=== PATIENT | male | born 1960 | race Caucasian/White ===

== ENCOUNTER → 2020-06-14 08:16 | Outpatient (BNVA) | payer MEDICARE, MEDICAID, SELFPAY | PROVIDERS: PCP Internal Medicine; Referring Provider Internal Medicine; Visit Provider Physician Assistant | DX: K21.9 Gastro-esophageal reflux disease without esophagitis (principal); F10.10 Alcohol abuse, uncomplicated; Z79.899 Other long term (current) drug therapy | CPT/HCPCS: Q3014 ==

== ENCOUNTER 2020-08-06 11:26 | Outpatient (REF) | payer MEDICARE, SELFPAY ==
[2020-08-06 13:04] LABS: Alanine Aminotransferase 26 U/L (0-40); Albumin Level 4.3 g/dL (3.5-5.0); Alkaline Phosphatase 65 U/L (39-117); Anion Gap 14 (12-20); Aspartate Amino Transferase 23 U/L (5-37); Bilirubin Total 0.5 mg/dL (0.0-1.0); Blood Urea Nitrogen 21 mg/dL (9-16); Calcium 9.3 mg/dL (8.4-10.2); Carbon Dioxide 26 mmol/L (22-29); Chloride 105 mmol/L (96-108); Cholesterol 190 mg/dL; Estimated Glomerular Filt Rate > 60; Glucose Random 91 mg/dL (60-115); HDL Cholesterol 29 mg/dL; LDL Cholesterol Calculated 121 mg/dl; Potassium 4.8 mmol/l (3.3-5.1); Sodium 140 mmol/L (135-145); Total Protein 7.1 g/dL (6.5-8.0); Triglycerides 200 mg/dL
[2020-08-06 13:26] LABS: Thyroid Stimulating Hormone 0.66 uIU/mL (0.32-4.0)
== END 2020-08-06 11:27 | disposition home or self-care (01) ==
LOC: HO.LAB 11:26
PROVIDERS: PCP Internal Medicine; Visit Provider Internal Medicine
DX: E78.2 Mixed hyperlipidemia (principal); I10 Essential (primary) hypertension; M54.16 Radiculopathy, lumbar region; R80.0 Isolated proteinuria; Z72.0 Tobacco use
CPT/HCPCS: 36415; 80053; 80061; 84443

== ENCOUNTER 2020-08-31 10:30 | Outpatient (REF) | payer OTHER, SELFPAY ==
--- NOTE | ~2020-08-31 | XR_ITS ---
EXAMINATION: XR LUMBOSACRAL SPINE CLINICAL INFORMATION: Chronic low back pain. Question facet arthropathy and sacroiliitis. COMPARISON: Previous exam July 2019 TECHNIQUE: Three views of the lumbosacral spine. FINDINGS: There may be a transitional vertebral body segment or 6 lumbar-type vertebral bodies. For the purposes of this dictation, the transitional segment is designated as inferiorly. Bone alignment is normal. No fracture or dislocation is seen. There is degenerative disc disease at the transitional segment sacral level. There are prominent transverse processes and pseudoarticulation and degenerative change of the transverse processes of the transitional segment articulation with the sacrum. There is lower lumbar spine facet arthritis. There is evidence of mild atherosclerotic disease. XR/XR lumbar spine 2-3V IMPRESSION: Probable transitional vertebral body segment or 6 lumbar-type vertebral bodies. Lower lumbar spine facet arthritis and degenerative change at the transitional segment sacral transverse process articulation and disc space.
== END 2020-08-31 10:31 | disposition home or self-care (01) ==
LOC: HO.XRAY 10:30
PROVIDERS: PCP Internal Medicine; Visit Provider Student in an Organized Health Care Education/Training Program
DX: M47.897 Other spondylosis, lumbosacral region (principal)
CPT/HCPCS: 72100

== ENCOUNTER 2020-09-28 14:00 | Outpatient (RCR) | payer OTHER, SELFPAY | END 2020-10-14 13:48 | disposition home or self-care (01) | LOC: HO.PT 14:00 | PROVIDERS: PCP Internal Medicine; Visit Provider Student in an Organized Health Care Education/Training Program | DX: M47.897 Other spondylosis, lumbosacral region (principal) | CPT/HCPCS: 97110; 97161; 97530 ==

== ENCOUNTER → 2020-12-07 08:34 | Outpatient (BNVA) | payer OTHER, SELFPAY | PROVIDERS: PCP Internal Medicine; Visit Provider Physician Assistant | DX: K21.9 Gastro-esophageal reflux disease without esophagitis (principal); F10.10 Alcohol abuse, uncomplicated; Z86.010 Personal history of colon polyps | CPT/HCPCS: 99212 ==

== ENCOUNTER 2021-01-13 14:50 | Outpatient (REF) | payer OTHER, SELFPAY ==
--- NOTE | ~2021-01-13 | XR_ITS ---
EXAMINATION: XR RIBS, RIGHT CLINICAL INFORMATION: Pleurodynia. COMPARISON: None TECHNIQUE: 3 views of the right ribs were obtained. The site of right lower posterior lateral chest pain as was pointed out by the patient was marked with a cutaneous BB marker. FINDINGS: Corresponding to the site of the BB marker projecting in the region, close to the right 11th rib posteriorly and anterolateral aspect of the right seventh rib, shows no evidence of any displaced fracture. The remainder of the visualized right hemithorax also appear intact. No evidence of any hemopneumothorax or lung contusion is seen within the visualized right hemithorax. The heart size is within normal limits. XR/XR ribs RT 2V IMPRESSION: No radiographic evidence of any displaced right lower rib fracture.
== END 2021-01-13 14:51 | disposition home or self-care (01) ==
LOC: HO.XRAY 14:50
PROVIDERS: PCP Internal Medicine; Visit Provider Student in an Organized Health Care Education/Training Program
DX: R07.81 Pleurodynia (principal)
CPT/HCPCS: 71100; 99212

== ENCOUNTER 2021-01-19 07:40 | Day surgery (SDC) | payer OTHER, SELFPAY ==
[2021-01-12 16:06] VITALS: BMI 26.1
--- NOTE | 2021-01-18 09:52 | HO.ANESPROP2 ---
HPI - Anesthesia Eval Consult details Narrative: 60yo M for Colonoscopy +ETOH PMFSH Active Problems Active Problems: All Active Problems (Updated 01/13/21 @ 15:11 by Jazmín Higgins MD) Rib pain on right side (Acute) Low back pain (Acute) Alcohol abuse (Acute) History of colon polyps (Acute) Acid reflux (Acute) Past Medical History Medical History Acid reflux Alcohol abuse Depression Elevated cholesterol GERD (gastroesophageal reflux disease) History of colon polyps On beta sonya at home Smoker Tubular adenoma Family History Family History Father No problems noted. Surgical History Surgical History History of esophagogastroduodenoscopy (EGD) Hx of colonoscopy Social History Social History Household Members: None Household Members Other:: alone Alcohol intake: current Alcohol intake frequency: a few times a week Patient Tobacco Use Status: Current everyday Tobacco user Tobacco use type: Cigarette Cigarette Packs Per Day: 0.5 Cigarettes Per Day: 10.0 Years Smoked: 40 e-Cigarette/Vaping Use: Never Used Current occupational status: disabled Meds Allergies Allergy/AdvReac Type Severity Reaction Status Date / Time No Known Allergies Allergy Verified 01/13/21 15:02 [No Known Allergies*] Home Medications Medication Instructions Recorded Confirmed Last Taken Type fenofibrate micronized 200 mg 200 mg PO DAILY 06/14/20 01/12/21 Unknown History capsule metoprolol succinate 50 mg 50 mg PO DAILY 06/14/20 01/12/21 Unknown History tablet,extended release 24 hr omeprazole 20 mg capsule,delayed 20 mg PO BID 06/14/20 01/12/21 Unknown History release atorvastatin 80 mg tablet 80 mg PO DAILY 12/07/20 01/12/21 Unknown History cetirizine 1 tab PO DAILY 01/12/21 01/12/21 Unknown History meloxicam 1 tab PO DAILY 01/12/21 01/12/21 Unknown History Exam Exam Date and Time: January 18, 2021 0952 Height,Weight and Vital Signs: Height 5 ft 10 in Weight 82.554 kg Pertinent Lab Results Pertinent Lab Results: Laboratory Tests 08/06/20 11:45 Sodium 140 Potassium 4.8 Chloride 105 Carbon Dioxide 26 BUN 21 H Creatinine 1.17 Assessment and Plan Assessment Anesthesia Assessment: Chart Reviewed
[2021-01-19 08:49] VITALS: BP 138/87; PULSE 104; RESP 18; TEMP 36.4; O2SAT 97
--- NOTE | 2021-01-19 09:00 | P.CONAN_ITS ---
[facility] Active Problems Active Problems: All Active Problems (Updated 01/13/21 @ 15:11 by Jazmín rowe MD) Rib pain on right side (Acute) Low back pain (Acute) Alcohol abuse (Acute) History of colon polyps (Acute) Acid reflux (Acute) last Cocain 5 days ago Past Medical History Medical History Acid reflux Alcohol abuse Depression Elevated cholesterol GERD (gastroesophageal reflux disease) History of colon polyps On beta sonya at home Smoker Tubular adenoma Family History Family History Father No problems noted. Surgical History Surgical History History of esophagogastroduodenoscopy (EGD) Hx of colonoscopy Social History Social History Household Members: None Household Members Other:: alone Alcohol intake: current Alcohol intake frequency: a few times a week Patient Tobacco Use Status: Current everyday Tobacco user Tobacco use type: Cigarette Cigarette Packs Per Day: 0.5 Cigarettes Per Day: 10.0 Years Smoked: 40 Smoked in Last 30 Days: Yes e-Cigarette/Vaping Use: Never Used Use of substances other than those prescribed or required for medical reasons: Yes Substance Use Type Other:: quit cocaine yrs ago Have you been hit, kicked, punched, or otherwise hurt by someone within the past year? If so, by whom?: No Are you DNR?: No Advance Directives: No Advance Directives Information Provided: No Advance Directives on File: No Current occupational status: disabled Meds Allergies Allergy/AdvReac Type Severity Reaction Status Date / Time No Known Allergies Allergy Verified 01/13/21 15:02 [No Known Allergies*] Active Medications: Current Medications Generic Name Dose Route Start Last Admin Trade Name Freq PRN Reason Stop Dose Admin Albuterol Sulfate 2.5 mg 01/19/21 06:55 Albuterol Sulfate (0.083%) 2.5 Mg/3 Ml Vial.Neb INHALE ONCE PRN Shortness of Breath/Wheezing Lactated Ringer's 1,000 mls @ 100 mls/hr 01/19/21 07:00 Lr IVCONT .[facility] Home Medications Medication Instructions Recorded Confirmed Last Taken Type fenofibrate micronized 200 mg 200 mg PO DAILY 06/14/20 01/12/21 Unknown History capsule metoprolol succinate 50 mg 50 mg PO DAILY 06/14/20 01/12/21 Unknown History tablet,extended release 24 hr omeprazole 20 mg capsule,delayed 20 mg PO BID 06/14/20 01/12/21 Unknown History release atorvastatin 80 mg tablet 80 mg PO DAILY 12/07/20 01/12/21 Unknown History cetirizine 1 tab PO DAILY 01/12/21 01/12/21 Unknown History meloxicam 1 tab PO DAILY 01/12/21 01/12/21 Unknown History Exam Exam Date and Time: January 19, 2021 0900 Height,Weight and Vital Signs: Height 5 ft 10 in Weight 82.554 kg Last Vital Signs Temp 97.5 F 01/19/21 08:49 Pulse 104 H 01/19/21 08:49 Resp 18 01/19/21 08:49 BP 138/87 01/19/21 08:49 Pulse Ox 97 01/19/21 08:49 Airway Mallampati Class: II TM Dist: >3cm Neck ROM: Full Heart: RRR Lungs: CTA
[2021-01-19] MEDS: Lactated Ringers 1,000 ML 100 ML IVCONT (09:05)
--- NOTE | 2021-01-19 09:41 | MHC.SHP ---
Pre-Procedural Eval Section A Date of Service: 01/19/21 Section B Chief Complaint: hx of colonic polyps Relevant Family History (Specify if Yes): No Relevant Social History: Tobacco Use Present Medications: see Short Stay Collaborative assessment Medical History: Significant History (Acid reflux Alcohol abuse Depression Elevated cholesterol GERD (gastroesophageal reflux disease) History of colon polyps On beta sonya at home Smoker Tubular adenoma) History of Previous Operations: Relevant previous surgery/procedure and date(s) (History of esophagogastroduodenoscopy (EGD) Hx of colonoscopy) Allergies: Allergies Allergy/AdvReac Type Severity Reaction Status Date / Time No Known Allergies Allergy Verified 01/13/21 15:02 [No Known Allergies*] Review of Systems Sugical H&P ROS: Negative: Constitution, Cardiovascular, Respiratory, Neurological, Psychiatric, Hem-Onc, Allergic/Immunologic, Gastrointestinal, Genitourinary, Musculoskeletal, Integumentary, Endocrine and Eyes/Ears/Nose/Throat Exam Surgical H&P Exam: Normal: HEENT, Normal: Heart, Normal: Lungs, Normal: Extremities, Normal: Abdomen, Normal: Skin and Normal: Neurological Plan Diagnosis/Plan: Unchanged I have reviewed the history and physical and performed a pertinent physical examination on my patient. No changes have occurred unless specified.
--- NOTE | 2021-01-19 10:11 | P.OP_ITS ---
Operative Note Operative Note Date of Service: 01/19/21 Narrative: Operative Information Procedure Description: Colonoscopy COLONOSCOPY Instrument: Olympus variable stiffness pediatric scope 190L Colonoscopy Monitoring: Vital signs and clinical assessment, continuous EKG monitoring, Pulse oximetry, Carbon Dioxide monitoring and blood pressure monitoring were done throughout the procedure. Colon withdrawal time was 12 minutes. Procedure: The patient was placed in the left lateral decubitis position and pre-procedure medications were administered. After a digital rectal examination of the ano-rectum, the video colonoscope was inserted into the rectum and advanced through the colon to the cecum/TI. The colonoscope was slowly withdrawn in a retrograde panoramic fashion and the colon mucosa was carefully examined including a retroflexed view of the rectum. Findings and interventions are described below. Procedure Difficulty:easy Findings: Terminal Ileum-normal Cecum:normal Ascending Colon: normal Transverse Colon -normal Descending Colon: x 2 sessile polyps 8-10 mm removed with cold snare Sigmoid Colon: mild to moderate diverticulosis Rectum: Retroflexion with moderate sized internal hemorrhoids, grade I, x 2 sessile polyps 7-8 mm removed with forceps Anorectum - normal Colon preparation: Bolton Bowel Preparation Scale Right colon; 2 Transverse colon: 2 Left colon; 2 (0 = Unprepared colon segment with mucosa not seen due to solid stool that canno t be cleared. 1 = Portion of mucosa of the colon segment seen, but other areas of the colon segment not well seen due to staining, residual stool and/or opaque liquid. 2 = Minor amount of residual staining, small fragments of stool and/or opaque liquid, but mucosa of colon segment seen well. 3 = Entire mucosa of colon segment seen well with no residual staining, small fragments of stool or opaque liquid) Impression and Post Procedure Diagnosis: polyps internal hemorrhoids diverticular disease Plan: High fiber diet leaflet Avoid straining at stool, epsom salts and sitz bath, anusol supps or cream as needed Repeat Colonoscopy in 5 years or earlier if clinically indicated Above findings were reviewed with the patient and relevant handouts were provided if indicated.
--- NOTE | 2021-01-19 10:11 | P.BOP_ITS ---
Brief Operative Note Date of Service: 01/19/21 Pre-op diagnosis: hx of polyps Post-op diagnosis: same Procedure: see op note Surgeon: Alice Olson MD Anesthesia: MAC Was an Environmental Director used for this Procedure?: No Estimated blood loss (mL): 0 Condition: stable Disposition: PACU
[2021-01-19 10:19] VITALS: BP 108/66; PULSE 95; RESP 16; TEMP 36.1; O2SAT 95
[2021-01-19 10:32] VITALS: BP 119/79; PULSE 97; RESP 20; O2SAT 97
== END 2021-01-19 11:06 | disposition home or self-care (01) ==
PROVIDERS: PCP Internal Medicine; Visit Provider Internal Medicine Gastroenterology
PROC: 0DJD8ZZ Inspection of Lower Intestinal Tract, Via Natural or Artificial Opening Endoscopic (ICD-10-PCS; CPT 45378; principal; 2021-01-19 09:20)
DX: Z12.11 Encounter for screening for malignant neoplasm of colon (principal); Z86.010 Personal history of colon polyps; D12.4 Benign neoplasm of descending colon; K62.1 Rectal polyp; K57.30 Diverticulosis of large intestine without perforation or abscess without bleeding; K64.0 First degree hemorrhoids; K21.9 Gastro-esophageal reflux disease without esophagitis; Z79.899 Other long term (current) drug therapy; F10.10 Alcohol abuse, uncomplicated; F17.210 Nicotine dependence, cigarettes, uncomplicated
CPT/HCPCS: 45385; 45380; 88305

== ENCOUNTER → 2021-02-02 11:08 | Outpatient (BNVA) | payer OTHER, SELFPAY | PROVIDERS: PCP Internal Medicine; Visit Provider Physician Assistant | DX: K57.30 Diverticulosis of large intestine without perforation or abscess without bleeding (principal); K64.9 Unspecified hemorrhoids; Z86.010 Personal history of colon polyps | CPT/HCPCS: 99212 ==

== ENCOUNTER 2021-06-22 14:02 | Outpatient (REF) | payer OTHER, SELFPAY ==
[2021-06-22 15:00] LABS: Alanine Aminotransferase 50 U/L (0-40); Albumin Level 4.2 g/dL (3.5-5.0); Alkaline Phosphatase 78 U/L (39-117); Anion Gap 12 (12-20); Aspartate Amino Transferase 34 U/L (5-37); Bilirubin Total 0.2 mg/dL (0.0-1.0); Blood Urea Nitrogen 14 mg/dL (9-16); Calcium 9.6 mg/dL (8.4-10.2); Carbon Dioxide 26 mmol/L (22-29); Chloride 110 mmol/L (96-108); Cholesterol 176 mg/dL; Estimated Glomerular Filt Rate > 60; Glucose Random 131 mg/dL (60-115); HDL Cholesterol 20 mg/dL; Potassium 4.3 mmol/L (3.3-5.1); Sodium 144 mmol/L (135-145); Total Protein 6.9 g/dL (6.5-8.0); Triglycerides 405 mg/dL
== END 2021-06-22 14:03 | disposition home or self-care (01) ==
LOC: HO.LAB 14:02
PROVIDERS: PCP Internal Medicine; Visit Provider Internal Medicine
DX: Z00.00 Encounter for general adult medical examination without abnormal findings (principal); E78.2 Mixed hyperlipidemia; I10 Essential (primary) hypertension; L63.8 Other alopecia areata
CPT/HCPCS: 36415; 80053; 80061

== ENCOUNTER → 2022-01-17 14:15 | Outpatient (BNVA) | payer OTHER, SELFPAY | PROVIDERS: Visit Provider Nurse Practitioner Family | DX: M25.511 Pain in right shoulder (principal); G89.29 Other chronic pain; M54.50 Low back pain, unspecified | CPT/HCPCS: 99212 ==

== ENCOUNTER 2022-02-17 15:06 | Outpatient (REF) | payer OTHER, SELFPAY ==
[2022-02-17 15:31] LABS: MANUAL DIFF FLAG NO
[2022-02-17 15:43] LABS: Basophils Percent Auto 0.5 % (0-2); Eosinophils Absolute Auto 0.1 X10*3/uL (0.0-0.4); Eosinophils Percent Auto 1.5 % (0-4); Hematocrit 36.4 % (42.0-52.0); Hemoglobin 11.9 g/dl (14.0-18.0); Imm Gran Abs Auto 0.04 X10*3/uL (0.00-0.03); Imm Gran Pct Auto 0.5 % (0.0-0.4); Lymphocytes Absolute Auto 2.5 X10*3/uL (1.2-4.9); Lymphocytes Percent Auto 28.7 % (20-40); Mean Corpuscular HGB Conc 32.7 g/dl (31.0-36.0); Mean Corpuscular Hemoglobin 28.5 pg (27.0-33.0); Mean Corpuscular Volume 87.3 fL (80.0-98.0); Mean Platelet Volume 9.8 fL (9.4-12.4); Monocytes Absolute Auto 0.6 X10*3/uL (0.1-1.2); Neutrophils Absolute Auto 5.3 x10*3/uL (2.0-8.3); Neutrophils Percent Auto 61.8 % (45-73); Platelet Count 325 X10*3/uL (160-400); Red Blood Count 4.17 X10*6/uL (4.60-5.80); Red Cell Distribution Width 12.7 % (11.0-16.0); White Blood Count 8.6 X10*3/uL (4.8-10.8)
[2022-02-17 16:16] LABS: Alanine Aminotransferase 21 U/L (0-40); Albumin Level 4.5 g/dL (3.5-5.0); Alkaline Phosphatase 57 U/L (39-117); Anion Gap 15 (12-20); Aspartate Amino Transferase 18 U/L (5-37); Bilirubin Total 0.5 mg/dL (0.0-1.0); Blood Urea Nitrogen 30 mg/dL (9-16); Calcium 9.5 mg/dL (8.4-10.2); Carbon Dioxide 25 mmol/L (22-29); Chloride 103 mmol/L (96-108); Cholesterol 180 mg/dL; Estimated Glomerular Filt Rate 24; Glucose Random 100 mg/dL (60-115); HDL Cholesterol 18 mg/dL; Potassium 5.1 mmol/L (3.3-5.1); Sodium 138 mmol/L (135-145); Total Protein 7.3 g/dL (6.5-8.0); Triglycerides 411 mg/dL
[2022-02-17 16:36] LABS: Prostate Specific Antigen 1.25 ng/mL (<0.05-4.0); Thyroid Stimulating Hormone 0.96 uIU/mL (0.32-4.0)
== END 2022-02-17 15:07 | disposition home or self-care (01) ==
LOC: HO.LAB 15:06
PROVIDERS: PCP Internal Medicine; Visit Provider Internal Medicine
DX: Z12.5 Encounter for screening for malignant neoplasm of prostate (principal); E78.1 Pure hyperglyceridemia; I10 Essential (primary) hypertension; N40.0 Benign prostatic hyperplasia without lower urinary tract symptoms; Z72.0 Tobacco use
CPT/HCPCS: 36415; 80053; 80061; 84153; 84443; 85025

== ENCOUNTER 2022-06-28 11:59 | Outpatient (REF) | payer OTHER, SELFPAY ==
--- NOTE | ~2022-06-28 | US_ITS ---
EXAMINATION: US RETROPERITONEAL LIMITED (RENAL ONLY) CLINICAL INFORMATION: Chronic kidney disease. COMPARISON: US renal 04/13/2020. CT abdomen pelvis 09/16/2018. TECHNIQUE: Real-time imaging of the kidneys. FINDINGS: RIGHT KIDNEY: 9.6 x 6.0 x 5.1 cm (SAG x AP x TRV). The kidney is normal in size, contour, and echogenicity. Renal cortical thickness is normal. No renal calculi or hydronephrosis. A 3 mm hyperechoic avascular lesion in the right lower pole may reflect a tiny angiomyolipoma. LEFT KIDNEY: 9.7 x 4.8 x 4.3 cm (SAG x AP x TRV). The kidney is normal in size, contour, and echogenicity. Renal cortical thickness is normal. No renal calculi or hydronephrosis. Benign-appearing 0.7 cm renal cyst, no imaging follow-up recommended. 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
[2022-06-28 12:31] LABS: MANUAL DIFF FLAG NO
[2022-06-28 13:09] LABS: Basophils Percent Auto 0.5 % (0-2); Eosinophils Absolute Auto 0.3 X10*3/uL (0.0-0.4); Eosinophils Percent Auto 3.4 % (0-4); Hematocrit 39.5 % (42.0-52.0); Hemoglobin 12.7 g/dl (14.0-18.0); Imm Gran Abs Auto 0.03 X10*3/uL (0.00-0.03); Imm Gran Pct Auto 0.4 % (0.0-0.4); Lymphocytes Absolute Auto 1.4 X10*3/uL (1.2-4.9); Lymphocytes Percent Auto 18.7 % (20-40); Mean Corpuscular HGB Conc 32.2 g/dl (31.0-36.0); Mean Corpuscular Hemoglobin 27.8 pg (27.0-33.0); Mean Corpuscular Volume 86.4 fL (80.0-98.0); Mean Platelet Volume 10.1 fL (9.4-12.4); Monocytes Absolute Auto 0.7 X10*3/uL (0.1-1.2); Neutrophils Absolute Auto 5.1 x10*3/uL (2.0-8.3); Platelet Count 279 X10*3/uL (160-400); Red Blood Count 4.57 X10*6/uL (4.60-5.80); Red Cell Distribution Width 12.9 % (11.0-16.0); White Blood Count 7.5 X10*3/uL (4.8-10.8)
[2022-06-28 15:10] LABS: Alanine Aminotransferase 40 U/L (0-40); Albumin Level 4.5 g/dL (3.5-5.0); Alkaline Phosphatase 76 U/L (39-117); Anion Gap 14 (12-20); Aspartate Amino Transferase 32 U/L (5-37); Bilirubin Direct 0.2 mg/dL (0.0-0.5); Bilirubin Total 0.6 mg/dL (0.0-1.0); Blood Urea Nitrogen 12 mg/dL (9-16); Calcium 9.7 mg/dL (8.4-10.2); Carbon Dioxide 25 mmol/L (22-29); Chloride 106 mmol/L (96-108); Estimated Glomerular Filt Rate 39; Glucose Random 146 mg/dL (60-115); Magnesium 1.9 mg/dL (1.6-2.6); Phosphorus 2.5 mg/dL (2.7-4.5); Sodium 141 mmol/L (135-145); Total Protein 7.3 g/dL (6.5-8.0); Uric Acid 5.6 mg/dL (3.4-7.0); Vitamin D 25-OH Total 7.1 ng/mL (>30)
[2022-06-28 16:45] LABS: Creatinine Urine 427.75 mg/dL
[2022-06-28 17:20] LABS: Total Protein Urine Random 383 mg/dL (<12)
[2022-06-28 18:24] LABS: Appearance Urine Hazy; Color Urine Yellow; Glucose Urine UA 100 mg/dL (Negative); Leukocyte Esterase Urine Negative (Negative); Nitrite Urine Negative (Negative); Specific Gravity - Urine 1.025 (1.005-1.025); UMIC TRIGGER UA YES; Urine Blood Trace (Negative); Urine Ketones Trace mg/dL (Negative); Urine Protein 100 (2+) mg/dL (Neg-Trace)
[2022-06-28 18:39] LABS: WBC Urine 0-5 /HPF (0-5)
[2022-06-28 18:40] LABS: Bacteria Urine Trace (None Seen); Granular Casts Urine Present
[2022-06-29 05:08] LABS: HBsAGNum1 0.54 S/CO (0.00-0.99); Hepatitis B Surface Antigen Negative (Negative); ~HepC Num1 0.12 S/CO (0.00-0.79); ~Hepatitis C Antibody Nonreactive (Nonreactive)
[2022-06-29 11:18] LABS: Complement C3 158 mg/dL (82-185)
[2022-06-29 14:14] LABS: Calcium (PTHI) 9.8 mg/dL (8.6-10.3); PTHI 41 pg/mL (16-77)
[2022-06-30 13:09] LABS: Neutrophil Cyto Ab Screen NEGATIVE (NEGATIVE)
[2022-06-30 15:24] LABS: Anti Nuclear Antibody Screen POSITIVE (NEGATIVE); Anti Nuclear Antibody Titer 1:40 titer
[2022-06-30 23:13] LABS: Prot Elec - Albumin 4.2 g/dL (3.8-4.8); Prot Elec - Alpha1 0.3 g/dL (0.2-0.3); Prot Elec - Alpha2 0.9 g/dL (0.5-0.9); Prot Elec - Beta 1 0.6 g/dL (0.4-0.6); Prot Elec - Beta 2 0.4 g/dL (0.2-0.5); Prot Elec - Gamma 0.9 g/dL (0.8-1.7); Prot Elec - Total Protein 7.3 g/dL (6.1-8.1)
== END 2022-06-28 12:00 | disposition home or self-care (01) ==
LOC: HO.HMGCX 11:59
PROVIDERS: PCP Internal Medicine; Visit Provider Internal Medicine Nephrology
DX: I12.9 Hypertensive chronic kidney disease with stage 1 through stage 4 chronic kidney disease, or unspecified chronic kidney disease (principal); N18.32 Chronic kidney disease, stage 3b
CPT/HCPCS: 76775; 80053; 81001; 81003; 82248; 82306; 83735; 83970; 84100; 84156; 84165; 84550; 85025; 86036; 86037; 86038; 86039; 86160; 86803; 87340

== ENCOUNTER 2022-10-04 12:42 | Outpatient (REF) | payer OTHER, SELFPAY ==
[2022-10-04 13:07] LABS: MANUAL DIFF FLAG NO
[2022-10-04 13:28] LABS: Basophils Percent Auto 0.4 % (0-2); Eosinophils Absolute Auto 0.1 X10*3/uL (0.0-0.4); Eosinophils Percent Auto 1.1 % (0-4); Hematocrit 40.6 % (42.0-52.0); Hemoglobin 13.8 g/dl (14.0-18.0); Imm Gran Abs Auto 0.04 X10*3/uL (0.00-0.03); Imm Gran Pct Auto 0.5 % (0.0-0.4); Lymphocytes Absolute Auto 2.2 X10*3/uL (1.2-4.9); Lymphocytes Percent Auto 26.7 % (20-40); Mean Corpuscular Hemoglobin 29.4 pg (27.0-33.0); Mean Corpuscular Volume 86.4 fL (80.0-98.0); Monocytes Absolute Auto 0.6 X10*3/uL (0.1-1.2); Neutrophils Absolute Auto 5.3 x10*3/uL (2.0-8.3); Neutrophils Percent Auto 64.3 % (45-73); Platelet Count 240 X10*3/uL (160-400); Red Cell Distribution Width 12.6 % (11.0-16.0); White Blood Count 8.3 X10*3/uL (4.8-10.8)
[2022-10-04 14:00] LABS: Anion Gap 15 (12-20); Blood Urea Nitrogen 13 mg/dL (9-16); Calcium 9.1 mg/dL (8.4-10.2); Carbon Dioxide 27 mmol/L (22-29); Chloride 107 mmol/L (96-108); Estimated Glomerular Filt Rate 56; Potassium 4.7 mmol/L (3.3-5.1); Sodium 144 mmol/L (135-145)
[2022-10-10 23:34] LABS: Phospholipase A2 IgG ELISA <4 RU/mL; Phospholipase A2 IgG IFA NEGATIVE (NEGATIVE)
== END 2022-10-04 12:43 | disposition home or self-care (01) ==
LOC: HO.LAB 12:42
PROVIDERS: PCP Internal Medicine; Visit Provider Internal Medicine Nephrology
DX: I12.9 Hypertensive chronic kidney disease with stage 1 through stage 4 chronic kidney disease, or unspecified chronic kidney disease (principal); N18.32 Chronic kidney disease, stage 3b; R79.1 Abnormal coagulation profile
CPT/HCPCS: 36415; 80051; 82310; 82565; 83520; 84520; 85025; 85610; 86255

== ENCOUNTER 2022-10-12 13:34 | Outpatient (REF) | payer OTHER, SELFPAY ==
[2022-10-12 14:46] LABS: Alanine Aminotransferase 78 U/L (0-40); Alkaline Phosphatase 144 U/L (39-117); Anion Gap 13 (12-20); Aspartate Amino Transferase 41 U/L (5-37); Bilirubin Total 0.4 mg/dL (0.0-1.0); Blood Urea Nitrogen 11 mg/dL (9-16); Calcium 9.3 mg/dL (8.4-10.2); Carbon Dioxide 26 mmol/L (22-29); Chloride 107 mmol/L (96-108); Cholesterol 161 mg/dL; Estimated Glomerular Filt Rate > 60; Glucose Random 127 mg/dL (60-115); HDL Cholesterol 37 mg/dL; LDL Cholesterol Calculated 57 mg/dl; Potassium 4.2 mmol/L (3.3-5.1); Sodium 142 mmol/L (135-145); Total Protein 6.8 g/dL (6.5-8.0); Triglycerides 337 mg/dL
== END 2022-10-12 13:35 | disposition home or self-care (01) ==
LOC: HO.LAB 13:34
PROVIDERS: PCP Internal Medicine; Visit Provider Internal Medicine
DX: Z00.00 Encounter for general adult medical examination without abnormal findings (principal); E78.2 Mixed hyperlipidemia; I12.9 Hypertensive chronic kidney disease with stage 1 through stage 4 chronic kidney disease, or unspecified chronic kidney disease; N18.9 Chronic kidney disease, unspecified; F17.200 Nicotine dependence, unspecified, uncomplicated
CPT/HCPCS: 36415; 80053; 80061

== ENCOUNTER 2023-01-09 12:17 | Outpatient (REF) | payer OTHER, SELFPAY ==
[2023-01-09 14:58] LABS: Estimated Average Glucose 117 mg/dL; Hemoglobin A1c % 5.7 %
[2023-01-09 15:27] LABS: Cholesterol 162 mg/dL; HDL Cholesterol 24 mg/dL; LDL Cholesterol Calculated 59 mg/dl; Triglycerides 399 mg/dL
== END 2023-01-09 12:18 | disposition home or self-care (01) ==
LOC: HO.LAB 12:17
PROVIDERS: PCP Internal Medicine; Visit Provider Internal Medicine
DX: E78.2 Mixed hyperlipidemia (principal); I12.9 Hypertensive chronic kidney disease with stage 1 through stage 4 chronic kidney disease, or unspecified chronic kidney disease; N18.9 Chronic kidney disease, unspecified; R73.01 Impaired fasting glucose
CPT/HCPCS: 36415; 80061; 83036

== ENCOUNTER 2023-04-09 14:58 | Outpatient (REF) | payer OTHER, SELFPAY ==
[2023-04-09 15:19] LABS: MANUAL DIFF FLAG NO
[2023-04-09 16:45] LABS: Basophils Percent Auto 0.4 % (0-2); Eosinophils Absolute Auto 0.1 X10*3/uL (0.0-0.4); Eosinophils Percent Auto 1.5 % (0-4); Hematocrit 38.1 % (42.0-52.0); Hemoglobin 12.3 g/dl (14.0-18.0); Imm Gran Abs Auto 0.03 X10*3/uL (0.00-0.03); Imm Gran Pct Auto 0.4 % (0.0-0.4); Lymphocytes Absolute Auto 1.7 X10*3/uL (1.2-4.9); Lymphocytes Percent Auto 23.4 % (20-40); Mean Corpuscular HGB Conc 32.3 g/dl (31.0-36.0); Mean Corpuscular Hemoglobin 28.7 pg (27.0-33.0); Mean Platelet Volume 10.8 fL (9.4-12.4); Monocytes Absolute Auto 0.5 X10*3/uL (0.1-1.2); Monocytes Percent Auto 7.1 % (2-11); Neutrophils Absolute Auto 4.8 x10*3/uL (2.0-8.3); Neutrophils Percent Auto 67.2 % (45-73); Platelet Count 343 X10*3/uL (160-400); Red Blood Count 4.28 X10*6/uL (4.60-5.80); Red Cell Distribution Width 12.9 % (11.0-16.0); White Blood Count 7.1 X10*3/uL (4.8-10.8)
[2023-04-09 17:34] LABS: Alanine Aminotransferase 20 U/L (0-40); Albumin Level 4.3 g/dL (3.5-5.0); Alkaline Phosphatase 56 U/L (39-117); Anion Gap 14 (12-20); Aspartate Amino Transferase 20 U/L (5-37); Bilirubin Total 0.4 mg/dL (0.0-1.0); Blood Urea Nitrogen 20 mg/dL (9-16); Calcium 9.6 mg/dL (8.4-10.2); Carbon Dioxide 25 mmol/L (22-29); Chloride 106 mmol/L (96-108); Cholesterol 162 mg/dL (<200); Estimated Glomerular Filt Rate 40; Glucose Random 88 mg/dL (60-115); HDL Cholesterol 28 mg/dL (>40); LDL Cholesterol Calculated 67 mg/dL (<100); Potassium 4.6 mmol/L (3.3-5.1); Sodium 140 mmol/L (135-145); Total Protein 7.3 g/dL (6.5-8.0); Triglycerides 339 mg/dL (<150)
[2023-04-09 17:35] LABS: Thyroid Stimulating Hormone 0.89 uIU/mL (0.32-4.0)
== END 2023-04-09 14:59 | disposition home or self-care (01) ==
LOC: HO.LAB 14:58
PROVIDERS: Absent Provider Internal Medicine; PCP Internal Medicine; Visit Provider Internal Medicine Nephrology
DX: I12.9 Hypertensive chronic kidney disease with stage 1 through stage 4 chronic kidney disease, or unspecified chronic kidney disease (principal); N18.31 Chronic kidney disease, stage 3a; E78.2 Mixed hyperlipidemia; Z72.0 Tobacco use
CPT/HCPCS: 36415; 80053; 80061; 84443; 85025

== ENCOUNTER 2023-10-03 14:13 | Outpatient (REF) | payer MEDICARE, MEDICAID, SELFPAY ==
[2023-10-03 15:38] LABS: Alanine Aminotransferase 19 U/L (0-40); Albumin Level 4.4 g/dL (3.5-5.0); Alkaline Phosphatase 49 U/L (39-117); Anion Gap 12 (12-20); Aspartate Amino Transferase 18 U/L (5-37); Bilirubin Total 0.3 mg/dL (0.0-1.0); Blood Urea Nitrogen 21 mg/dL (9-16); Calcium 11.2 mg/dL (8.4-10.2); Carbon Dioxide 27 mmol/L (22-29); Chloride 108 mmol/L (96-108); Cholesterol 179 mg/dL (<200); Estimated Glomerular Filt Rate 44; Glucose Random 122 mg/dL (60-115); HDL Cholesterol 27 mg/dL (>40); LDL Cholesterol Calculated 102 mg/dL (<100); Potassium 4.5 mmol/L (3.3-5.1); Sodium 142 mmol/L (135-145); Total Protein 7.5 g/dL (6.5-8.0); Triglycerides 253 mg/dL (<150)
[2023-10-03 15:44] LABS: Prostate Specific Antigen 1.24 ng/mL (<0.05-4.0)
== END 2023-10-03 14:14 | disposition home or self-care (01) ==
LOC: HO.LAB 14:13
PROVIDERS: PCP Internal Medicine; Visit Provider Internal Medicine
DX: I12.9 Hypertensive chronic kidney disease with stage 1 through stage 4 chronic kidney disease, or unspecified chronic kidney disease (principal); N40.0 Benign prostatic hyperplasia without lower urinary tract symptoms; Z72.0 Tobacco use; Z12.5 Encounter for screening for malignant neoplasm of prostate
CPT/HCPCS: 36415; 80053; 80061; 84153

== ENCOUNTER 2023-11-06 13:39 | Outpatient (REF) | payer MEDICARE, SELFPAY ==
[2023-11-06 15:33] LABS: Calcium 9.6 mg/dL (8.4-10.2); Phosphorus 3.2 mg/dL (2.7-4.5)
[2023-11-07 05:37] LABS: Parathyroid Hormone Intact 53.3 pg/mL (8.7-77.1)
[2023-11-10 16:58] LABS: VITAMIN D (1,25 OH) D3 40 pg/mL; Vit D (1,25-Dihydroxy) Total 40 pg/mL (18-72); Vitamin D (1,25 OH) D2 <8 pg/mL
== END 2023-11-06 13:40 | disposition home or self-care (01) ==
LOC: HO.LAB 13:39
PROVIDERS: PCP Internal Medicine; Visit Provider Internal Medicine
DX: M75.51 Bursitis of right shoulder (principal); I12.9 Hypertensive chronic kidney disease with stage 1 through stage 4 chronic kidney disease, or unspecified chronic kidney disease; E78.2 Mixed hyperlipidemia; E83.52 Hypercalcemia
CPT/HCPCS: 36415; 82310; 82652; 83970; 84100

== ENCOUNTER 2023-11-21 08:11 | Outpatient (REF) | payer OTHER, SELFPAY ==
--- NOTE | ~2023-11-21 | XR_ITS ---
EXAMINATION: XR SHOULDER, RIGHT CLINICAL INFORMATION: Pain in right shoulder. COMPARISON: Right shoulder films dated 07/11/2016. TECHNIQUE: Two views of the right shoulder. FINDINGS: No acute fracture or dislocation. Glenohumeral joint shows mild degenerative changes with minimal spurring along the inferior margin of the glenoid. There is also mild degenerative change in the acromioclavicular joint with bursal and non-bursal surface tiny spur formation, similar to the previous exam. Included right ribs and right lung unremarkable. Mild vertebral spurring in the mid and lower thoracic spine. XR/XR shoulder RT min 2V IMPRESSION: * No acute fracture or dislocation. * Mild degenerative changes in the glenohumeral and acromioclavicular joints.
== END 2023-11-21 08:12 | disposition home or self-care (01) ==
LOC: HO.HOSX 08:11
PROVIDERS: Visit Provider Orthopaedic Surgery
DX: M75.41 Impingement syndrome of right shoulder (principal)
CPT/HCPCS: 73030; 99202

== ENCOUNTER 2023-11-21 13:50 | Outpatient (AMB) | payer OTHER, SELFPAY ==
--- NOTE | 2023-11-21 13:53 | A.OFFVIS_ITS ---
Vital Signs 11/21/23 14:02 Height 5 ft 10 in Weight 192 lb BMI 27.5 Intake Visit Reasons: N/P B/L Shoulder pain [id number] decreased ROM Intake Note: José Antonio is a 62 year old Right hand dominant male who presents as a new patient with Right shoulder pain and weakness. The patient states that he 1st injured his shoulder approximately 20 years ago. Since that time his symptoms have gotten progressively worse. He has had cortisone injections in the past which gave him minimal relief. He has also done physical therapy which aggravated his pain. The patient has gotten progressively worse over the last 6 weeks in spite of conservative treatment. He has tried Tylenol and anti-inflammatory medicines which gave him minimal relief. He reports weakness when lifting his right hand above shoulder height. [employer] Supervisor Name: [id number] Allergies No Known Allergies [No Known Allergies*] Allergy (Verified 11/21/23 14:08) Medication List - Last Reconciled 11/21/23 by Augusto Miller MD atorvastatin 80 mg PO DAILY cetirizine 1 tab PO DAILY fenofibrate micronized 200 mg PO DAILY gabapentin 100 mg PO DAILY meloxicam 1 tab PO DAILY metoprolol succinate ER 50 mg PO DAILY omeprazole 20 mg PO BID tizanidine 4 mg PO BEDTIME PRN valsartan 320 mg PO DAILY [facility] Medical History Alcohol abuse Depression Elevated cholesterol GERD (gastroesophageal reflux disease) On beta sonya at home Smoker Tubular adenoma Surgical History History of esophagogastroduodenoscopy (EGD) Hx of colonoscopy Family History Father No problems noted. Social History (Updated 11/21/23 @ 14:09 by Alondra Avery CMA) Household Members: None Household Members Other:: alone Alcohol intake: current Alcohol intake frequency: a few times a week Patient Tobacco Use Status: Current everyday Tobacco user Tobacco use type: Cigarette Cigarette Packs Per Day: 0.5 Cigarettes Per Day: 10.0 Years Smoked: 40 e-Cigarette/Vaping Use: Never Used Current occupational status: disabled Current occupation: Right hand dominate Physical Exam Vital Signs: BMI result Body Mass Index 27.5 Const Other: Well-nourished well-developed very friendly male awake alert and oriented x3 in no acute distress Extrem Other: Bilateral upper extremity examination shows good capillary refill, no skin lesions noted, normal sensation light touch Right shoulder examination shows slightly decreased range of motion when compared to his left shoulder, 4+ out of 5 strength with supraspinatus testing, positive impingement signs, tenderness over his acromioclavicular joint, no instability Results Reviewed Results Reviewed: X-rays of the patient's right shoulder taken today show severe acromioclavicular joint narrowing, a type 2 acromion, no acute bony abnormalities Assessment & Plan Assessment & Plan (1) Right shoulder pain: Code(s): M25.511 - Pain in right shoulder Category: Medical Plan Mr. Henson presents with progressively worsening right shoulder pain and weakness due to impingement syndrome and possible rotator cuff tearing. Thus, I will send the patient for an MRI of his right shoulder for further evaluation. I will see the patient back following the MRI to discuss the findings and treatment options. He will continue with his range of motion exercises in the meantime to prevent stiffness. Feel free to call me at any time should questions regarding his orthopedic management arise. Thank you very much for asking me to see this very friendly gentleman. I spent 21 minutes in reviewing the patient's records and imaging studies, seeing the patient and documenting in the medical record. Orders: Orders XR shoulder LT min 2V Today M25.512 - Pain in left shoulder XR shoulder RT min 2V Today M25.511 - Pain in right shoulder MR shoulder RT wo con Today M25.511 - Pain in right shoulder Coding Level of Care Code New Pt Level 2 (23847) Diagnoses Right shoulder pain M25.511
[2023-11-21 14:02] VITALS: BMI 27.5
== END 2023-11-21 14:19 | disposition home or self-care (01) ==
PROVIDERS: PCP Internal Medicine; Visit Provider Orthopaedic Surgery
DX: M25.511 Pain in right shoulder (principal)
CPT/HCPCS: 99202

== ENCOUNTER → 2023-12-03 14:42 | Outpatient (REF) | payer OTHER, SELFPAY ==
--- NOTE | 2023-12-03 14:45 | CA_ITS ---
Transthoracic Echocardiogram Patient (Last, First, Middle): José Antonio Henson M Gender: Male Date of : 1960 Age: 62 Procedure Date: 12/03/2023 Procedure Type: Transthoracic Echocardiogram Location: OP Height: 177.8 cm Weight: 87.09 kg BSA: 2.05 m2 Heart Rate: 95 bpm BP: 160 / 78 mmHg Adobe Block Maker: JESSICA Referring MD: Therese Ramos MD Ditching Machine Operating Engineer: Dayday Restrepo MD Symptoms: HTN, TACHYCARDIA Study Quality: Adequate ECG Rhythm: Sinus Conclusions: - 1. Hyperdynamic LV ejection fraction greater than 70% with grade 1 diastolic dysfunction 2. Normal cardiac valvular Doppler 3. No gross pericardial effusion Findings Left Ventricle Normal left ventricular cavity size. There is normal left ventricular wall thickness. The left ventricular systolic function is hyperdynamic. The visually estimated ejection fraction is >70%. There is no evidence of regional wall motion abnormalities. Spectral Doppler is indicative of an impaired relaxation filling pattern. E/E prime ratio is <8, consistent with normal filling pressures. Evidence suggests grade I (mild) diastolic dysfunction. Right Ventricle Normal right ventricular cavity size and systolic function. Atria Both atria are normal in size. Interatrial shunt cannot be excluded. Aortic Valve The aortic valve structure and function is likely normal. There is no aortic valve stenosis. There is no aortic valve regurgitation. Mitral Valve Likely normal mitral valve structure and function. There is trace mitral valve regurgitation. There is no mitral valve stenosis. Pulmonic Valve The pulmonic valve was not well visualized. Tricuspid Valve Likely normal tricuspid valve structure and function. Tricuspid regurgitation envelope is inadequate for calculation of right ventricular systolic pressure. Normal right atrial pressure. Great Vessels The pulmonary artery was not well visualized. There is no dilatation of the ascending aorta measuring 3.30 cm. There is no evidence of plaque in the aorta. Venous The inferior vena cava is normal in size and collapses greater than 50% with inspiration. Pericardium/Pleural There is no evidence of pericardial effusion. Prior Study Comparison No prior study available for comparison. Measurements 2D Linear Measurements IVSd: 1.05 0.6-0.9/0.6-1.0 cm LVIDd: 4.54 3.9-5.3/4.2-5.9 cm LVIDd Index: 2.21 2.4-3.2/2.2-3.1 cm/m2 LVIDs: 2.36 2.0-3.6 cm LVPWd: 1.03 0.7-1.1 cm LA Diam: 3.70 2.7-3.8/3.0-4.0 cm LAIDs Index: 1.80 1.5-2.3 cm/m2 LV Mass: 247.31 67-162/88-224 g LV Mass Index: 120.64 43-95/49-115 g/m2 LVOT Diam: 1.90 3.0+(-)1.3 cm 2D Systolic Function EF 4C: 75.60 >55% EF 2C: 64.30 >55% EF BiP: 71.20 >55% Mitral Valve MV Pk E: 0.55 MV PK A: 0.51 MV Decel Time: 169.00 E/A: 1.10 E'Lateral: 11.30 E'Medial: 6.53 E/E' Med: 8.50 E/E' Lat: 4.90 PHT: 50.00 MVA PHT: 4.40 Decel [place]: 3.26 Aortic Valve AoV Pk Octavio: 1.81 AoV Mn Octavio: 1.32 AoV VTI: 0.29 AoV Pk Grad: 13.00 Aov Mn Grad: 8.00 LEAH Cont.VTI: 2.53 LVOT LVOT Pk Octavio: 1.51 LVOT Mn Octavio: 1.09 LVOT VTI: 0.26 LVOT Pk Grad: 9.00 LVOT Mn Grad: 5.00 LVOT Diam: 1.90 LVOT Area: 2.84 Diastolic Function MV Pk E: 0.55 MV Pk A: 0.51 E/A: 1.10 E'Medial: 6.53 E/E' Med: 8.50 E' Laterial: 11.30 E/E' Lat: 4.90 Right Ventricle TAPSE (mm): 19.40 TVS' Octavio: 19.50 Tricuspid Valve RA Press: 3.00 Great Vessels Aorta Sinus of Valsalva: 3.10 2.0-3.5 cm Ao Asc: 3.30 2.1-3.4 cm Pulmonary Valve PV Pk Octavio: 1.21 Peak PV Grad: 6.00 Updated in Other Vendor System with Status of Final Dayday Restrepo MD electronically signed on 12/04/2023 8:41:22 AM with status of Final
== END ==
LOC: HO.CARD 14:42
PROVIDERS: PCP Internal Medicine; Visit Provider Internal Medicine
DX: I10 Essential (primary) hypertension (principal); R00.0 Tachycardia, unspecified
CPT/HCPCS: 93306

== ENCOUNTER → 2023-12-03 14:45 | Outpatient (BNV) | payer OTHER, SELFPAY | PROVIDERS: PCP Internal Medicine; Visit Provider Internal Medicine Cardiovascular Disease | DX: I34.0 Nonrheumatic mitral (valve) insufficiency (principal); R93.1 Abnormal findings on diagnostic imaging of heart and coronary circulation | CPT/HCPCS: 93306 ==

== ENCOUNTER 2024-02-05 14:31 | Outpatient (REF) | payer OTHER, SELFPAY ==
--- NOTE | ~2024-02-05 | MR_ITS ---
EXAMINATION: MR SHOULDER WITHOUT CONTRAST, RIGHT CLINICAL INFORMATION: Shoulder pain. COMPARISON: None available. TECHNIQUE: MRI of the shoulder without contrast was performed on a high-field scanner. Limited study. Technologist reports exams stopped due to claustrophobia. Axial PD fat-sat, sagittal T2 sequence obtained. FINDINGS: Only 2 sequences obtained. Study stopped due to claustrophobia. Limited incomplete evaluation of structures. Repeat MRI is recommended. Limited evaluation, with suspected findings films: ROTATOR CUFF: Mild subscapularis tendinosis, mild deep surface fraying distally. Teres minor is grossly intact. Limited evaluation of the supraspinatus and infraspinatus tendons. No muscle atrophy or fatty infiltration. BICEPS: Intact CORACOACROMIAL ARCH: The undersurface of the acromion is mildly curved. Mild-moderate acromioclavicular arthritis. LABRUM/CAPSULE: Limited incomplete evaluation. T2 signal in the base of the posterior labrum, from degeneration and probable tear. Remainder off the labrum is not reliably evaluated GLENOHUMERAL JOINT/MARROW: Limited incomplete evaluation. Degenerative cyst/edema superior glenoid. No fractures identified. Small joint fluid.. MR/MR shoulder RT wo con IMPRESSION: Limited incomplete study. Limited incomplete evaluation of structures. Structures are not reliably evaluated. Repeat MRI is recommended. On the provided sequences, suspected findings are as follows: 1. Mild subscapularis tendinosis, mild deep surface fraying. 2. Posterior labral degeneration and probable tear. 3. Mild-moderate acromioclavicular arthritis.
== END 2024-02-05 14:32 | disposition home or self-care (01) ==
LOC: HO.MRI 14:31
PROVIDERS: PCP Internal Medicine; Visit Provider Orthopaedic Surgery
DX: M25.511 Pain in right shoulder (principal)
CPT/HCPCS: 73221

== ENCOUNTER 2024-03-05 12:34 | Outpatient (REF) | payer OTHER, SELFPAY ==
[2024-03-05 12:59] LABS: MANUAL DIFF FLAG NO
[2024-03-05 13:59] LABS: Appearance Urine Clear; Color Urine Yellow; Glucose Urine UA 250 mg/dL (Negative); Leukocyte Esterase Urine Trace (Negative); Nitrite Urine Negative (Negative); Specific Gravity - Urine 1.015 (1.005-1.025); UMIC TRIGGER UA YES; Urine Blood Negative (Negative); Urine Ketones Negative (Negative); Urine Protein Trace mg/dL (Neg-Trace)
[2024-03-05 14:02] LABS: Bacteria Urine None Seen (None Seen); Hyaline Casts Urine 0-2 /LPF (0-2); RBC Urine 0-2 /HPF (0-2); Squamous Epithelial Cell Urine 0-2 /HPF (0-2)
[2024-03-05 14:16] LABS: Estimated Average Glucose 126 mg/dL
[2024-03-05 14:31] LABS: Creatinine Urine 96.74 mg/dL; Microalbum/Creatinine Ratio Ur 23.7 ug/mg cr (<30); Protein/Creatinine Ratio, Ur 0.14 (<0.2); Total Protein Urine Random 14 mg/dL (<12)
[2024-03-05 14:34] LABS: Parathyroid Hormone Intact 86.3 pg/mL (8.7-77.1)
[2024-03-05 14:36] LABS: Alanine Aminotransferase 49 U/L (0-40); Albumin Level 4.2 g/dL (3.5-5.0); Alkaline Phosphatase 123 U/L (39-117); Anion Gap 13 (12-20); Aspartate Amino Transferase 28 U/L (5-37); Bilirubin Total 0.4 mg/dL (0.0-1.0); Blood Urea Nitrogen 17 mg/dL (9-16); Calcium 9.5 mg/dL (8.4-10.2); Carbon Dioxide 24 mmol/L (22-29); Chloride 110 mmol/L (96-108); Cholesterol 155 mg/dL (<200); Estimated Glomerular Filt Rate > 60; Glucose Random 127 mg/dL (60-115); HDL Cholesterol 38 mg/dL (>40); Sodium 143 mmol/L (135-145); Total Protein 7.2 g/dL (6.5-8.0); Triglycerides 429 mg/dL (<150)
[2024-03-05 14:37] LABS: Anion Gap 15 (12-20); Blood Urea Nitrogen 17 mg/dL (9-16); Calcium 9.6 mg/dL (8.4-10.2); Carbon Dioxide 22 mmol/L (22-29); Chloride 110 mmol/L (96-108); Estimated Glomerular Filt Rate 60; Iron 90 mcg/dL (45-160); Magnesium 1.6 mg/dL (1.6-2.6); Percent Iron Saturation 32 % (15-50); Phosphorus 3.4 mg/dL (2.7-4.5); Potassium 3.9 mmol/L (3.3-5.1); Sodium 143 mmol/L (135-145); Total Iron Binding Capacity 280 mcg/dL (228-428); Unsaturated Iron Binding 190 ug/dL; Uric Acid 7.9 mg/dL (3.4-7.0)
[2024-03-05 14:51] LABS: Thyroid Stimulating Hormone 1.21 uIU/mL (0.32-4.0)
[2024-03-05 14:52] LABS: Ferritin 366 ng/mL (20-250); Vitamin D 25-OH Total 11.4 ng/mL (>30)
[2024-03-05 15:01] LABS: Basophils Percent Auto 0.5 % (0-2); Eosinophils Absolute Auto 0.1 X10*3/uL (0.0-0.4); Eosinophils Percent Auto 1.4 % (0-4); Hemoglobin 12.2 g/dl (14.0-18.0); Imm Gran Abs Auto 0.03 X10*3/uL (0.00-0.03); Imm Gran Pct Auto 0.4 % (0.0-0.4); Lymphocytes Absolute Auto 1.9 X10*3/uL (1.2-4.9); Lymphocytes Percent Auto 25.5 % (20-40); Mean Corpuscular HGB Conc 33.9 g/dl (31.0-36.0); Mean Corpuscular Hemoglobin 29.5 pg (27.0-33.0); Mean Corpuscular Volume 87.2 fL (80.0-98.0); Mean Platelet Volume 10.5 fL (9.4-12.4); Monocytes Absolute Auto 0.5 X10*3/uL (0.1-1.2); Monocytes Percent Auto 7.4 % (2-11); Neutrophils Absolute Auto 4.8 x10*3/uL (2.0-8.3); Neutrophils Percent Auto 64.8 % (45-73); Platelet Count 249 X10*3/uL (160-400); Red Blood Count 4.13 X10*6/uL (4.60-5.80); Red Cell Distribution Width 13.2 % (11.0-16.0); White Blood Count 7.3 X10*3/uL (4.8-10.8)
[2024-03-20 12:50] LABS: Kappa/Lambda Lt Ch Free Ratio 1.06; Lambda Light Chain, Free Serum 24.8
== END 2024-03-05 12:35 | disposition home or self-care (01) ==
LOC: HO.LAB 12:34
PROVIDERS: Absent Provider Internal Medicine; PCP Internal Medicine; Visit Provider Internal Medicine
DX: I12.9 Hypertensive chronic kidney disease with stage 1 through stage 4 chronic kidney disease, or unspecified chronic kidney disease (principal); N18.31 Chronic kidney disease, stage 3a; E78.2 Mixed hyperlipidemia; E83.52 Hypercalcemia; R00.0 Tachycardia, unspecified
CPT/HCPCS: 36415; 80051; 80053; 80061; 81001; 82043; 82306; 82310; 82565; 82570; 82610; 82728; 83036; 83521; 83540; 83735; 83970; 84100; 84156; 84443; 84520; 84550; 85025

== ENCOUNTER 2024-03-06 14:41 | Outpatient (AMB) | payer OTHER, SELFPAY ==
--- NOTE | 2024-03-06 14:46 | A.OFFVIS_ITS ---
Intake Visit Reasons: OV- RT shoulder MRI review Intake Note: José Antonio is a 63 year old male who presents with complaints of progressively worsening right shoulder pain. The patient's pain has gotten worse over the last year in spite of continued non operative treatments. He denies any weakness. He has done physical therapy exercises which aggravated his pain. He has also tried Tylenol and anti-inflammatory medicines which gave him minimal relief. Allergies No Known Allergies [No Known Allergies*] Allergy (Verified 03/06/24 14:47) Medication List - Last Reconciled 03/07/24 by Augusto Miller MD atorvastatin 80 mg PO DAILY cetirizine 1 tab PO DAILY meloxicam 1 tab PO DAILY metoprolol succinate ER 50 mg PO DAILY omeprazole 20 mg PO BID tizanidine 4 mg PO BEDTIME PRN valsartan 320 mg PO DAILY PFSH Medical History Alcohol abuse Depression Elevated cholesterol GERD (gastroesophageal reflux disease) On beta sonya at home Smoker Tubular adenoma Surgical History History of esophagogastroduodenoscopy (EGD) Hx of colonoscopy Family History Father No problems noted. Social History (Updated 11/21/23 @ 14:09 by Alondra Avery CMA) Household Members: None Household Members Other:: alone Alcohol intake: current Alcohol intake frequency: a few times a week Patient Tobacco Use Status: Current everyday Tobacco user Tobacco use type: Cigarette Cigarette Packs Per Day: 0.5 Cigarettes Per Day: 10.0 Years Smoked: 40 e-Cigarette/Vaping Use: Never Used Current occupational status: disabled Current occupation: Right hand dominate Physical Exam Const Other: Well-nourished well-developed very friendly male awake alert and oriented x3 in no acute distress Extrem Other: Bilateral upper extremity examination shows good capillary refill, no skin lesions noted, normal sensation light touch Right shoulder examination shows almost full range of motion when compared to his left shoulder, 4+ out of 5 strength with supraspinatus testing, positive impingement signs, tenderness over his acromioclavicular joint, no instability Office Procedures Joint Injection/Aspiration Joint Injection/Aspiration Primary Site: right shoulder Prep: site was prepped using aseptic technique Injected: 40 mg of, DepoMedrol and 1% plain lidocaine Procedure: The patient tolerated the procedure well Coding - Large joint Procedure code (CPT) selection complete Results Reviewed Results Reviewed: MRI of the patient's right shoulder show severe acromioclavicular joint narrowing, a type 2 acromion, signal change within the supraspinatus tendon due to rotator cuff tendinosis versus partial-thickness tearing Assessment & Plan Assessment & Plan (1) Impingement of right shoulder: Code(s): M25.811 - Other specified joint disorders, right shoulder Category: Medical Plan Mr. Henson presents with right shoulder pain due to impingement syndrome, acromioclavicular joint arthritis and rotator cuff tendinosis versus partial- thickness tearing. I had a lengthy discussion with the patient regarding the treatment options. He wishes to hold off on surgery for as long as possible. I agree with this plan. The risks and benefits of a right shoulder cortisone injection were discussed at length with the patient. The patient wished to proceed. He tolerated the injection well. He will continue with his range of motion exercises to prevent stiffness. He will follow up with me on an as- needed basis should his symptoms not plateau at an unacceptable level over the next few months. Feel free to call me at any time should questions regarding his orthopedic management arise. I spent 21 minutes in reviewing the patient's records and imaging studies, seeing the patient and documenting in the medical record. Orders: Orders AMB Joint Injection/Aspiration 03/06/24 M25.811 - Other specified joint disorders, right shoulder Coding Level of Care Code Est Pt Level 3 (71838) Diagnoses Impingement of right shoulder M25.811 CPT Codes Coding - Large joint: 88379 - Large joint ([id number])
== END 2024-03-06 15:17 | disposition home or self-care (01) ==
LOC: HO.HOS 14:41
PROVIDERS: PCP Internal Medicine; Visit Provider Orthopaedic Surgery
DX: M25.811 Other specified joint disorders, right shoulder (principal)
CPT/HCPCS: 20610; 99213

== ENCOUNTER → 2024-03-06 14:41 | Outpatient (BNVA) | payer OTHER, SELFPAY | PROVIDERS: PCP Internal Medicine; Visit Provider Orthopaedic Surgery | DX: M25.511 Pain in right shoulder (principal); M25.811 Other specified joint disorders, right shoulder | CPT/HCPCS: 20610; 99212; J1010 ==

== ENCOUNTER 2024-04-07 12:47 | Emergency (ER) | payer OTHER, SELFPAY ==
--- NOTE | ~2024-04-07 | CT_ITS ---
EXAMINATION: CT PELVIS WITH CONTRAST CLINICAL INFORMATION: Perirectal abscess. COMPARISON: CT abdomen pelvis dated September 16, 2018. TECHNIQUE: Helical scanning was performed with submillimeter collimation through the pelvis with the use of oral contrast and during bolus intravenous injection of 100 mL of Omnipaque 350 intravenous contrast. Sagittal and coronal multiplanar 2-D reconstructions were obtained. This CT examination was performed using dose optimization techniques as appropriate, variously including the following: *Automated exposure control *Adjustment of mA and/or kV according to patient size (this includes techniques or standardized protocols for targeted exams where dose is matched to indication/reason for exam; i.e. extremities or head) *Use of iterative reconstruction technique DLP: 242 mGy-cm FINDINGS: There is a fluid attenuation lesion within the left perirectal region with a thin enhancing rim measuring 3.3 x 2.2 cm in the axial plane and 3.6 cm in craniocaudal dimension. This is consistent with a perianal abscess. The collection is posterior to the anal canal and does not appear to extend through the skin surface. Visualized bowel is normal in caliber. The urinary bladder is normal in appearance. The prostate gland is normal in appearance. There is no free fluid within the pelvis. The visualized aorta and iliac arteries are normal in caliber. There is mild degenerative disc disease at L5-S1. CT/CT pelvis w IV con IMPRESSION: There is a fluid attenuation lesion within the left perirectal region with a thin enhancing rim measuring 3.3 x 2.2 cm in the axial plane and 3.6 cm in craniocaudal dimension. This is consistent with a perianal abscess. The collection is posterior to the anal canal and does not appear to extend through the skin surface. Electronically signed by: Edwin Swift DO 04/07/2024 06:56 PM EDT
[2024-04-07 13:03] VITALS: BP 125/64; PULSE 108; RESP 20; TEMP 36.6; O2SAT 98; BMI 26.2
--- NOTE | 2024-04-07 13:13 | ED.GENADULT ---
HPI - General Adult General Chief complaint: General Medical Stated complaint: Rectal Pain Dizziness Time Seen by Provider: 04/07/24 16:18 Source: patient Mode of arrival: ambulatory Limitations: no limitations History of Present Illness ED Provider: richard MEJIA narrative: no fever Related Data Home Medications ?Medication ?Instructions ?Recorded ?Confirmed metoprolol succinate 50 mg 50 mg PO DAILY 06/14/20 03/07/24 tablet,extended release 24 hr omeprazole 20 mg capsule,delayed 20 mg PO BID 06/14/20 03/07/24 release atorvastatin 80 mg tablet 80 mg PO DAILY 12/07/20 03/07/24 cetirizine 10 mg tablet 1 tab PO DAILY 01/12/21 03/07/24 meloxicam 7.5 mg tablet 1 tab PO DAILY 01/12/21 03/07/24 valsartan 320 mg tablet 320 mg PO DAILY 01/17/22 03/07/24 Previous Rx's ?Medication ?Instructions ?Recorded tizanidine 4 mg tablet 4 mg PO BEDTIME PRN muscle 05/19/20 spasticity #90 tabs ciprofloxacin HCl 500 mg tablet 500 mg PO BID #20 tabs 04/07/24 (Cipro) ibuprofen 600 mg tablet 600 mg PO Q6H PRN fever or pain 04/07/24 #30 tabs metronidazole 500 mg tablet 500 mg PO TID #30 tabs 04/07/24 Allergies Allergy/AdvReac Type Severity Reaction Status Date / Time No Known Allergies Allergy Verified 04/07/24 13:08 [No Known Allergies*] Review of Systems Review of Systems: Yes all other systems are reviewed and are negative PMFSH Past Medical History Medical History Alcohol abuse On beta sonya at home Depression GERD (gastroesophageal reflux disease) Smoker Elevated cholesterol History of colon polyps Tubular adenoma Acid reflux Surgical History History of esophagogastroduodenoscopy (EGD) Hx of colonoscopy Family History Family History Father No problems noted. Social History Social History Household Members: None Household Members Other:: alone Alcohol intake: current Alcohol intake frequency: a few times a week Patient Tobacco Use Status: Current everyday Tobacco user Tobacco use type: Cigarette Cigarette Packs Per Day: 0.5 Cigarettes Per Day: 10.0 Years Smoked: 40 Smoked in Last 30 Days: Yes e-Cigarette/Vaping Use: Never Used Use of substances other than those prescribed or required for medical reasons: No Advance Directives: No Advance Directives Information Provided: No Do you have a plan to hurt others: No Plan Current occupational status: disabled Current occupation: Right hand dominate Physical Exam ED Vital Signs: Vital Signs - 24 hr 04/07/24 13:03 04/07/24 16:18 04/07/24 18:07 Temperature 97.8 F 97.7 F Pulse Rate 108 H 78 91 Respiratory Rate 20 20 16 Blood Pressure 125/64 137/74 151/77 H Pulse Oximetry 98 97 99 Oxygen Delivery Method Room Air Room Air Room Air 04/07/24 19:04 04/07/24 20:16 Temperature 98.3 F 98.3 F Pulse Rate 88 88 Respiratory Rate 16 16 Blood Pressure 156/80 H 156/80 H Pulse Oximetry 100 100 Oxygen Delivery Method Room Air Room Air BMI result Body Mass Index 26.2 Appearance: Alert. Oriented X3. No acute distress. ENT: Pharynx normal. Oral Mucosa moist Neck: Normal inspection. Neck supple. CVS: Normal heart rate and rhythm. Pulses normal. Respiratory: No respiratory distress. Equal air entry bilateral, no wheezing/rales/rhonchi Abdomen: Soft and nontender. Bowel sounds are present, no mass palpable, no CVA tenderness rectal: Perirectal tenderness with fluctuant feeling small internal hemorrhoid no active bleeding Skin: Skin warm and dry. Normal skin color. Normal skin turgor. Extremities: No lower extremity edema. No calf tenderness Neuro: Oriented X 3. Course Course Course Narrative: This is a Rapid Medical Examination (RME) performed by Fabiola Brooks PA-C in triage. Full HPI, ROS, assessment and treatment plan per primary provider in the Main ED. 63 yo male here for eval of rectal pain/ bleeding x4 days. reports hx of hemorrhoids, this feels similar. no thinners. reports blood on toilet paper and in toilet bowl. assoc generalized weakness. no abd pain. no vomiting/diarrhea/constipation. Plan: labs, obs Medications Administered Discontinued Medications Generic Name Dose Route Start Last Admin Trade Name Luis PRN Reason Stop Dose Admin Piperacillin Sod/Tazobactam 50 mls @ 100 mls/hr 04/07/24 17:08 04/07/24 18:08 Sod 3.375 gm/ Sodium Chloride IV 04/07/24 17:37 Infused ONCE ONE Infusion Iohexol 100 ml 04/07/24 18:02 04/07/24 18:03 Iohexol 350 Mg/Ml 100 Ml Infus..Btl IV 04/07/24 18:03 85 ml ONCE ONE Administration Lidocaine HCl 5 ml 04/07/24 19:05 04/07/24 19:17 Lidocaine Hcl 1 % Mpf 5 Ml Vial INFILTRATI 04/07/24 19:06 5 ml ONCE ONE Administration Procedures Abscess I/D Site: que-rectal Side (if applicable): left Local Anesthetic: lidocaine 1% Amount of anesthesia used (mL): 5 Technique: needle aspiration Amount of fluid expressed (mL): 15 Sent for culture/gram staining?: Yes Irrigation: No Packing used?: none Medical Decision Making Medical Decision Making [facility] Narrative: Patient with perirectal abscess CT scan showed 3cm by 3 cm abscess needle aspiration done about 15 cc pus was drained patient felt much better case discussed with Dr. Glasgow will see him as outpatient Lab Data [facility] Lab Attestation statement: I reviewed the patient's lab results. 04/07/24 13:45 04/07/24 13:45 Labs: Lab Results 04/07/24 04/07/24 Range/Units 13:45 17:33 WBC 13.0 H (4.8-10.8) X10*3/uL RBC 3.82 L (4.60-5.80) X10*6/uL Hgb 11.5 L (14.0-18.0) g/dl Hct 32.9 L (42.0-52.0) % MCV 86.1 (80.0-98.0) fL MCH 30.1 (27.0-33.0) pg MCHC 35.0 (31.0-36.0) g/dl RDW 13.1 (11.0-16.0) % Plt Count 237 (160-400) X10*3/uL MPV 9.3 L (9.4-12.4) fL Immature Gran % (Auto) 0.8 H (0.0-0.4) % Neut % (Auto) 84.1 H (45-73) % Lymph % (Auto) 8.1 L (20-40) % Kay % (Auto) 6.5 (2-11) % Eos % (Auto) 0.3 (0-4) % Baso % (Auto) 0.2 (0-2) % Lymph # (Auto) 1.1 L (1.2-4.9) X10*3/uL Kay # (Auto) 0.9 (0.1-1.2) X10*3/uL Eos # (Auto) 0.0 (0.0-0.4) X10*3/uL Baso # (Auto) 0.0 (0.0-0.2) X10*3/uL Abs Immat Gran (auto) 0.11 H (0.00-0.03) X10*3/uL Absolute Neuts (auto) 11.0 H (2.0-8.3) x10*3/uL Absolute Nucleated RBC 0.000 (0.0-0.012) X10*3/uL Nucleated RBC % (auto) 0.0 (0.0-0.2) /100WBC Sodium 139 (135-145) mmol/L Potassium 4.2 (3.3-5.1) mmol/L Chloride 105 (96-108) mmol/L Carbon Dioxide 23 (22-29) mmol/L Anion Gap 15 (12-20) BUN 22 H (9-16) mg/dL Creatinine 1.63 H (0.5-1.4) mg/dL Estim Creat Clear Calc 47.2 Estimated GFR 43 Random Glucose 204 H (60-115) mg/dL Lactic Acid 1.2 (0.5-2.0) mmol/L Calcium 9.8 (8.4-10.2) mg/dL Total Bilirubin 0.4 (0.0-1.0) mg/dL AST 19 (5-37) U/L ALT 38 (0-40) U/L Alkaline Phosphatase 139 H (39-117) U/L Total Protein 7.3 (6.5-8.0) g/dL Albumin 4.1 (3.5-5.0) g/dL Independent Interpretation I performed an independent interpretation of an: CT Scan Radiology Impression Discussion of test interpretation with radiology: I have reviewed the radiologist's reading. Radiologist Impression: [address] [address] [address] Scan Report Signed Patient: José Antonio Henson MR#: [id number] : 1960 Acct:[id number] Age/Sex: 63 / M ADM Date: 04/07/24 Loc: .ED Attending Dr: Ordering Physician: Lizandro Cohn MD Date of Service: 04/07/24 Procedure(s): CT pelvis w IV con Accession Number(s): [id number] cc: Therese Ramos MD; Lizandro Cohn MD~ EXAMINATION: CT PELVIS WITH CONTRAST CLINICAL INFORMATION: Perirectal abscess. COMPARISON: CT abdomen pelvis dated September 16, 2018. TECHNIQUE: Helical scanning was performed with submillimeter collimation through the pelvis with the use of oral contrast and during bolus intravenous injection of 100 mL of Omnipaque 350 intravenous contrast. Sagittal and coronal multiplanar 2-D reconstructions were obtained. This CT examination was performed using dose optimization techniques as appropriate, variously including the following: *Automated exposure control *Adjustment of mA and/or kV according to patient size (this includes techniques or standardized protocols for targeted exams where dose is matched to indication/reason for exam; i.e. extremities or head) *Use of iterative reconstruction technique DLP: 242 mGy-cm FINDINGS: There is a fluid attenuation lesion within the left perirectal region with a thin enhancing rim measuring 3.3 x 2.2 cm in the axial plane and 3.6 cm in craniocaudal dimension. This is consistent with a perianal abscess. The collection is posterior to the anal canal and does not appear to extend through the skin surface. Visualized bowel is normal in caliber. The urinary bladder is normal in appearance. The prostate gland is normal in appearance. There is no free fluid within the pelvis. The visualized aorta and iliac arteries are normal in caliber. There is mild degenerative disc disease at L5-S1. CT/CT pelvis w IV con IMPRESSION: There is a fluid attenuation lesion within the left perirectal region with a thin enhancing rim measuring 3.3 x 2.2 cm in the axial plane and 3.6 cm in craniocaudal dimension. This is consistent with a perianal abscess. The collection is posterior to the anal canal and does not appear to extend through the skin surface. Electronically signed by: Edwin Swift DO 04/07/2024 06:56 PM EDT RP Discharge Plan Discharge Clinical Impression: Abscess, perirectal Patient Disposition: Home, Self-Care Instructions: Abscess Incision and Drainage (DC) Additional Instructions: Take antibiotics as prescribed See Dr. Glasgow tomorrow in the office for further follow up Prescriptions: New ciprofloxacin HCl [Cipro] 500 mg tablet 500 mg PO BID Qty: 20 0RF metronidazole 500 mg tablet 500 mg PO TID Qty: 30 0RF ibuprofen 600 mg tablet 600 mg PO Q6H PRN (Reason: fever or pain) Qty: 30 0RF No Action tizanidine 4 mg tablet 4 mg PO BEDTIME PRN (Reason: muscle spasticity) Qty: 90 1RF cetirizine 10 mg tablet 1 tab PO DAILY meloxicam 7.5 mg tablet 1 tab PO DAILY valsartan 320 mg tablet 320 mg PO DAILY omeprazole 20 mg capsule,delayed release(DR/EC) 20 mg PO BID metoprolol succinate 50 mg tablet extended release 24 hr 50 mg PO DAILY atorvastatin 80 mg tablet 80 mg PO DAILY Referrals: Ganesh Glasgow MD [Physician] - 1 day (Call office 830 AM) Interventions: ED Discharge Assessment Last Done: 04/07/24 20:16 Discharge Date/Time: 04/07/24 20:16 Print Language: Yi
[2024-04-07 13:50] LABS: MANUAL DIFF FLAG NO
[2024-04-07 13:52] LABS: Basophils Percent Auto 0.2 % (0-2); Eosinophils Percent Auto 0.3 % (0-4); Hematocrit 32.9 % (42.0-52.0); Hemoglobin 11.5 g/dl (14.0-18.0); Imm Gran Abs Auto 0.11 X10*3/uL (0.00-0.03); Imm Gran Pct Auto 0.8 % (0.0-0.4); Lymphocytes Absolute Auto 1.1 X10*3/uL (1.2-4.9); Lymphocytes Percent Auto 8.1 % (20-40); Mean Corpuscular Hemoglobin 30.1 pg (27.0-33.0); Mean Corpuscular Volume 86.1 fL (80.0-98.0); Mean Platelet Volume 9.3 fL (9.4-12.4); Monocytes Absolute Auto 0.9 X10*3/uL (0.1-1.2); Monocytes Percent Auto 6.5 % (2-11); Neutrophils Percent Auto 84.1 % (45-73); Platelet Count 237 X10*3/uL (160-400); Red Blood Count 3.82 X10*6/uL (4.60-5.80); Red Cell Distribution Width 13.1 % (11.0-16.0)
[2024-04-07 14:06] LABS: Alanine Aminotransferase 38 U/L (0-40); Albumin Level 4.1 g/dL (3.5-5.0); Alkaline Phosphatase 139 U/L (39-117); Anion Gap 15 (12-20); Aspartate Amino Transferase 19 U/L (5-37); Bilirubin Total 0.4 mg/dL (0.0-1.0); Blood Urea Nitrogen 22 mg/dL (9-16); Calcium 9.8 mg/dL (8.4-10.2); Carbon Dioxide 23 mmol/L (22-29); Chloride 105 mmol/L (96-108); Creatinine Clr Calc Pharmacy 47.2; Estimated Glomerular Filt Rate 43; Glucose Random 204 mg/dL (60-115); Potassium 4.2 mmol/L (3.3-5.1); Sodium 139 mmol/L (135-145); Total Protein 7.3 g/dL (6.5-8.0)
[2024-04-07 16:18] VITALS: BP 137/74; PULSE 78; RESP 20; TEMP 36.5; O2SAT 97
[2024-04-07] MEDS: Piperacillin Sodium/Tazobactam 3.375 GM in 0.9 % Sodium Chloride 50 ML IV (17:36)
[2024-04-07] MEDS: iohexoL 350 MG/ML 100 ML INFUS..BTL IV (18:03)
[2024-04-07 18:07] VITALS: BP 151/77; PULSE 91; RESP 16; O2SAT 99
[2024-04-07 18:08] LABS: Lactic Acid 1.2 mmol/L (0.5-2.0)
[2024-04-07 19:04] VITALS: BP 156/80; PULSE 88; RESP 16; TEMP 36.8; O2SAT 100
[2024-04-07] MEDS: Lidocaine HCl 1 % MPF 5 ML VIAL INFILTRATI (19:17)
[2024-04-07 20:16] VITALS: BP 156/80; PULSE 88; RESP 16; TEMP 36.8; O2SAT 100
== END 2024-04-07 20:16 | disposition home or self-care (01) ==
PROVIDERS: Physician Assistant Medical; Emergency Provider Internal Medicine; PCP Internal Medicine
DX: K61.1 Rectal abscess (principal); K62.89 Other specified diseases of anus and rectum; K62.5 Hemorrhage of anus and rectum; E78.00 Pure hypercholesterolemia, unspecified; F17.210 Nicotine dependence, cigarettes, uncomplicated
CPT/HCPCS: 10160; 36415; 46040; 72193; 80053; 83605; 85025; 87070; 87077; 87186; 87205; 96365; 99284; J2543; Q9967

== ENCOUNTER 2024-04-08 09:33 | Outpatient (AMB) | payer OTHER, SELFPAY ==
--- NOTE | 2024-04-08 09:36 | A.OFFVIS_ITS ---
Vital Signs 04/08/24 09:45 Height 5 ft 10 in Weight 181 lb BMI 26.0 BP 103/51 L Blood Pressure Location Rt brachial Position Sitting Pulse 110 H Intake Visit Reasons: Abscess, perirectal Intake Note: Patient here to follow up from ER visit yesterday. Was seen for perirectal abscess taht was I&Ded. Reports mild improvement. 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 Patient c/o: discomfort. 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 He is status post aspiration perirectal cyst last evening by the ER. Daughter states roughly 20 cc were retrieved from the aspiration. Patient presents here for follow-up. His anorectal symptoms are improved. He still has some mild discomfort there. Patient was never had such symptoms before. He is otherwise tolerating a diet, has regular bowel habits. [facility] Medical History Alcohol abuse On beta sonya at home Depression GERD (gastroesophageal reflux disease) Smoker Elevated cholesterol History of colon polyps Tubular adenoma Acid reflux Surgical History History of esophagogastroduodenoscopy (EGD) Hx of colonoscopy Family History Father No problems noted. Social History Household Members: None Household Members Other:: alone Alcohol intake: current Alcohol intake frequency: a few times a week Patient Tobacco Use Status: Current everyday Tobacco user Tobacco use type: Cigarette Cigarette Packs Per Day: 0.5 Cigarettes Per Day: 10.0 Years Smoked: 40 e-Cigarette/Vaping Use: Never Used Current occupational status: disabled Current occupation: Right hand dominate Physical Exam Vital Signs: Last Vital Signs Pulse 110 H 04/08/24 09:45 BP 103/51 L 04/08/24 09:45 BMI result Body Mass Index 26.0 GI Other: Abdomen is soft, benign. Anorectal evaluation demonstrated in the prone position at 09:00 o'clock some mild tenderness but no evidence of any fluctuance or abscess. Using 1% lidocaine and Betadine prep, symptomatic area was aspirated with sever al passes with a dry tap. Office Procedures FNA Biopsy FNA Biopsy Details: Risks, benefits, alternatives of aspiration of indurated area of anorectal were reviewed the patient included but not limited to bleeding, infection, numbness, pain, scarring the patient wished to proceed. All questions answered Using 1% lidocaine and Betadine prep, patient underwent uneventfully multiple past aspiration with 18 gauge needle in the indurated area of the left 9 o'clock position prone anorectal area with dry tap. Dressing applied. Patient tolerated procedure. FNA Biopsy 1: 83414-JSD Biopsy, 1st lesion w/o image All charges added?: Procedure code (CPT) selection complete Assessment & Plan Assessment & Plan (1) Anorectal abscess: Code(s): K61.2 - Anorectal abscess Category: Surgical Plan Current plan is for the patient to continue his antibiotics. Script will be given for analgesics, local wound care in the form assist passing warm compresses, the patient will see me in a few days time or p.r.n.. All questions answered. Orders: Orders Biopsy - Fine needle aspiration Today K61.2 - Anorectal abscess Coding Level of Care Code New Pt Level 4 (58319) Diagnoses Anorectal abscess K61.2 CPT Codes FNA Biopsy - FNA Biopsy 1: 54391-BBI Biopsy, 1st lesion w/o image ([id number])
[2024-04-08 09:45] VITALS: BP 103/51; PULSE 110; BMI 26.0
== END 2024-04-08 10:01 | disposition home or self-care (01) ==
PROVIDERS: PCP Internal Medicine; Visit Provider Surgery
DX: K61.2 Anorectal abscess (principal)
CPT/HCPCS: 10160; 99204

== ENCOUNTER → 2024-04-08 09:33 | Outpatient (BNVA) | payer OTHER, SELFPAY | PROVIDERS: PCP Internal Medicine; Visit Provider Surgery | DX: K61.2 Anorectal abscess (principal) | CPT/HCPCS: 10160; 99202 ==

== ENCOUNTER 2024-04-12 09:40 | Emergency (ER) | payer OTHER, SELFPAY ==
--- NOTE | ~2024-04-12 | CT_ITS ---
EXAMINATION: CT ABDOMEN AND PELVIS WITH CONTRAST CLINICAL INFORMATION: Anorectal abscess. COMPARISON: CT pelvis dated 04/07/2024. CT abdomen/pelvis dated 09/16/2018. TECHNIQUE: Multidetector volumetric images were obtained from the superior aspect of the liver through the pubic symphysis following administration 85 mL of Omnipaque 350 intravenous contrast. Sagittal and coronal reformatted images were obtained on the technologist's workstation. Oral Contrast: No. This CT examination was performed using dose optimization techniques as appropriate, variously including the following: *Automated exposure control. *Adjustment of mA and/or kV according to patient size (this includes techniques or standardized protocols for targeted exams where dose is matched to indication/reason for exam; i.e. extremities or head). *Use of iterative reconstruction technique. DLP: 542 mGy-cm FINDINGS: LUNG BASES: The visualized lung bases are unremarkable. LIVER, GALLBLADDER, AND BILIARY TREE: The liver is normal in size, shape, and attenuation. No focal hepatic lesion or biliary ductal dilatation is present. The gallbladder is unremarkable with no evidence of radiopaque gallstones, gallbladder wall thickening, or obvious pericholecystic inflammatory changes. PANCREAS: Unremarkable. SPLEEN: Unremarkable. ADRENAL GLANDS: Unremarkable. KIDNEYS AND URETERS: The kidneys are normal in size, shape, and attenuation. No hydronephrosis, hydroureter, or calculi seen. No perinephric stranding. BLADDER: Unremarkable. GASTROINTESTINAL TRACT: Redemonstration of a peripherally enhancing fluid collection along the left/posterior aspect of the rectum/anus. This measures approximately 4.6 x 2.7 x 5.3 cm (AP x ML x CC). Findings are minimally increased in size when compared to the recent CT. No additional bowel wall thickening or inflammatory change. No small or large bowel obstruction. Unremarkable appendix. PERITONEAL CAVITY: No intra-abdominal free air or free fluid. No intra-abdominal mass. ABDOMINAL WALL: No significant hernia is appreciated. LYMPH NODES: No significant lymphadenopathy. VASCULAR: No abdominal aortic dilatation or dissection. Atherosclerotic calcifications. Unremarkable IVC. PELVIC VISCERA: The prostate and seminal vesicles are unremarkable. OSSEOUS STRUCTURES: Unremarkable. CT/CT abdomen pelvis w IV con IMPRESSION: 1. Redemonstration of a peripherally enhancing fluid collection along the left/posterior aspect of the rectum/anus, minimally increased in size when compared to the recent CT. This measures up to 5.3 cm in greatest dimension. 2. No additional bowel wall thickening or inflammatory change. No small or large bowel obstruction. Unremarkable appendix. 3. No new intra-abdominal mass, lymphadenopathy, or ascites. Fleischner guidelines were followed. Electronically signed by: Chaitanya Baldwin MD 04/12/2024 02:12 PM EDT
[2024-04-12 09:48] VITALS: BP 112/66; PULSE 99; RESP 18; TEMP 36.7; O2SAT 99; BMI 26.1
[2024-04-12 11:15] LABS: MANUAL DIFF FLAG NO
[2024-04-12 11:17] LABS: Basophils Percent Auto 0.3 % (0-2); Eosinophils Absolute Auto 0.1 X10*3/uL (0.0-0.4); Eosinophils Percent Auto 0.8 % (0-4); Hematocrit 35.1 % (42.0-52.0); Hemoglobin 11.8 g/dl (14.0-18.0); Imm Gran Abs Auto 0.11 X10*3/uL (0.00-0.03); Imm Gran Pct Auto 0.9 % (0.0-0.4); Lymphocytes Absolute Auto 1.2 X10*3/uL (1.2-4.9); Mean Corpuscular HGB Conc 33.6 g/dl (31.0-36.0); Mean Corpuscular Hemoglobin 29.5 pg (27.0-33.0); Mean Corpuscular Volume 87.8 fL (80.0-98.0); Mean Platelet Volume 9.1 fL (9.4-12.4); Monocytes Absolute Auto 0.8 X10*3/uL (0.1-1.2); Monocytes Percent Auto 6.9 % (2-11); Neutrophils Absolute Auto 9.8 x10*3/uL (2.0-8.3); Neutrophils Percent Auto 81.1 % (45-73); Platelet Count 281 X10*3/uL (160-400); Red Cell Distribution Width 12.9 % (11.0-16.0); White Blood Count 12.1 X10*3/uL (4.8-10.8)
--- NOTE | 2024-04-12 11:34 | ED.SKABFB ---
HPI - Skin/Abscess/Foreign Bdy General Chief complaint: Skin/Abscess/Foreign Body Stated complaint: abscess Time Seen by Provider: 04/12/24 10:56 Source: patient and family Mode of arrival: ambulatory Limitations: language barrier History of Present Illness ED Provider: Dara MEJIA narrative: 63 yo M was seen here Sunday for anorectal abscess, which was drained and he was put on antibiotics. Was seen by surgical who advised the patient to return if it worsens. Patient now with 10/10 pain, unable to sit comfortably. States the abscess has gotten bigger. Denies fevers, chills, CP, SOB, N/V. Related Data Home Medications ?Medication ?Instructions ?Recorded ?Confirmed metoprolol succinate 50 mg 50 mg PO DAILY 06/14/20 04/08/24 tablet,extended release 24 hr omeprazole 20 mg capsule,delayed 20 mg PO BID 06/14/20 04/08/24 release atorvastatin 80 mg tablet 80 mg PO DAILY 12/07/20 04/08/24 cetirizine 10 mg tablet 1 tab PO DAILY 01/12/21 04/08/24 meloxicam 7.5 mg tablet 1 tab PO DAILY 01/12/21 04/08/24 valsartan 320 mg tablet 320 mg PO DAILY 01/17/22 04/08/24 Previous Rx's ?Medication ?Instructions ?Recorded tizanidine 4 mg tablet 4 mg PO BEDTIME PRN muscle 05/19/20 spasticity #90 tabs ciprofloxacin HCl 500 mg tablet 500 mg PO BID #20 tabs 04/07/24 (Cipro) ibuprofen 600 mg tablet 600 mg PO Q6H PRN fever or pain 04/07/24 #30 tabs metronidazole 500 mg tablet 500 mg PO TID #30 tabs 04/07/24 morphine 15 mg immediate release 15 mg PO Q6H PRN pain 5 days #10 04/12/24 tablet tabs Allergies Allergy/AdvReac Type Severity Reaction Status Date / Time No Known Allergies Allergy Verified 04/12/24 09:51 [No Known Allergies*] Review of Systems Review of Systems: Yes all other systems are reviewed and are negative PMFSH Past Medical History Attestation statement: The following information was validated with the patient. Source: old records reviewed and nursing notes reviewed Medical History Alcohol abuse On beta sonya at home Depression GERD (gastroesophageal reflux disease) Smoker Elevated cholesterol History of colon polyps Tubular adenoma Acid reflux Surgical History History of esophagogastroduodenoscopy (EGD) Hx of colonoscopy Family History Family History Father No problems noted. Social History Social History Household Members: None Household Members Other:: alone Alcohol intake: current Alcohol intake frequency: a few times a week Patient Tobacco Use Status: Current everyday Tobacco user Tobacco use type: Cigarette Cigarette Packs Per Day: 0.5 Cigarettes Per Day: 10.0 Years Smoked: 40 Smoked in Last 30 Days: Yes e-Cigarette/Vaping Use: Never Used Use of substances other than those prescribed or required for medical reasons: No Advance Directives: No Advance Directives Information Provided: No Do you have a plan to hurt others: No Plan Current occupational status: disabled Current occupation: Right hand dominate Physical Exam Vital Signs: Vital Signs: Last Vital Signs Temp 99.0 F 04/12/24 14:31 Pulse 79 04/12/24 14:31 Resp 20 04/12/24 14:31 BP 130/78 04/12/24 14:31 Pulse Ox 97 04/12/24 14:31 O2 Del Method Room Air 04/12/24 14:31 BMI result Body Mass Index 26.1 VSS Appearance: Alert. Oriented X3. No acute distress. ? No accessory muscle use Head: Normal external exam. Normocephalic. Atraumatic. ? Eyes: PERRLA. Abdomen: ?Soft nontender no rebound or guarding positive bowel sounds : erythematous, exquisitely tender, moderately sized abscess at the posterior aspect of the anus. No head or drainage noted Skin: Skin warm and dry.? Normal skin color.? Normal skin turgor. No rashes/lesions/lacerations noted. Extremities: No lower extremity edema. ? Extremities exhibit normal range of motion.? Neuro: Oriented X 3.? Course Reevaluation(s) Reevaluation #1: CBC with leukocytosis 12.1 improved from 04/07/2024. Slight shift however again improved from previous labs. Chemistry with baseline RODOLFO no acute findings. CT abdomen pelvis pending. Time: 12:33 Reevaluation #2: Redemonstrtion of peripherally enhancing fluid collection along the left posterior aspect of rectum and anus increased in size from CT on 04/07, he did have this area x 2 drained after that initial image and despite this appears larger. Surgery Dr. Ritchie will speak to patient in regards to course of action. Time: 14:29 Reevaluation #3: Patient evaluated by surgeon, incision and drainage done at the bedside, recommends for patient to stay on his current regimen of antibiotics no further antibiotic treatment needed. Warm compresses to the area and surgical follow-up advised. Educated patient on diagnosis and treatment plan, answered all question, patient verbalizes understanding. At this time patient will be discharged home, advised to return with new or worsening symptoms. Educated on worrisome signs and symptoms and when to return. At this time I feel comfortable discharge home. Time: 15:21 Medications Administered Discontinued Medications Generic Name Dose Route Start Last Admin Trade Name Luis PRN Reason Stop Dose Admin Iohexol 100 ml 04/12/24 11:57 04/12/24 11:57 Iohexol 350 Mg/Ml 100 Ml Infus..Btl IV 04/12/24 11:58 85 ml ONCE ONE Administration Morphine Sulfate 15 mg 04/12/24 12:04 04/12/24 12:21 Morphine Sulfate Immed Release 15 Mg Tablet PO 04/12/24 12:05 15 mg ONCE ONE Administration Medical Decision Making Medical Decision Making [facility] Narrative: 63 yo M was seen here Sunday for anorectal abscess, which was drained and he was put on antibiotics. Was seen by surgical who advised the patient to return if it worsens. PE: erythematous, exquisitely tender, moderately sized abscess at the posterior aspect of the anus. No head or drainage noted. No evidence of systemic toxicity Hx and PE concerning for anorectal abscess vs cellulitis. Less likely, malignancy. Plan: imaging, antibiotics, pain control Differential Diagnosis Differential Diagnoses: The differential diagnosis associated with the presentation includes (Hx and PE concerning for anorectal abscess vs cellulitis. Less likely, malignancy. ) Admission/Observation Consideration of admission/observation: Escalation of care including admission/observation considered Possible Consult Healthcare Provider Management of the patient was discussed with: Associate Doctor (General surgery - will see patient and come up with adequate treatment plan. ) Lab Data MDM Lab Attestation statement: I reviewed the patient's lab results. 04/12/24 11:12 04/12/24 11:12 Labs: Lab Results 04/12/24 Range/Units 11:12 WBC 12.1 H (4.8-10.8) X10*3/uL RBC 4.00 L (4.60-5.80) X10*6/uL Hgb 11.8 L (14.0-18.0) g/dl Hct 35.1 L (42.0-52.0) % MCV 87.8 (80.0-98.0) fL MCH 29.5 (27.0-33.0) pg MCHC 33.6 (31.0-36.0) g/dl RDW 12.9 (11.0-16.0) % Plt Count 281 (160-400) X10*3/uL MPV 9.1 L (9.4-12.4) fL Immature Gran % (Auto) 0.9 H (0.0-0.4) % Neut % (Auto) 81.1 H (45-73) % Lymph % (Auto) 10.0 L (20-40) % [place] % (Auto) 6.9 (2-11) % Eos % (Auto) 0.8 (0-4) % Baso % (Auto) 0.3 (0-2) % Lymph # (Auto) 1.2 (1.2-4.9) X10*3/uL [place] # (Auto) 0.8 (0.1-1.2) X10*3/uL Eos # (Auto) 0.1 (0.0-0.4) X10*3/uL Baso # (Auto) 0.0 (0.0-0.2) X10*3/uL Abs Immat Gran (auto) 0.11 H (0.00-0.03) X10*3/uL Absolute Neuts (auto) 9.8 H (2.0-8.3) x10*3/uL Absolute Nucleated RBC 0.000 (0.0-0.012) X10*3/uL Nucleated RBC % (auto) 0.0 (0.0-0.2) /100WBC Sodium 141 (135-145) mmol/L Potassium 3.9 (3.3-5.1) mmol/L Chloride 110 H (96-108) mmol/L Carbon Dioxide 22 (22-29) mmol/L Anion Gap 13 (12-20) BUN 17 H (9-16) mg/dL Creatinine 1.61 H (0.5-1.4) mg/dL Estim Creat Clear Calc 47.8 Estimated GFR 43 Random Glucose 122 H (60-115) mg/dL Calcium 9.6 (8.4-10.2) mg/dL Total Bilirubin 0.4 (0.0-1.0) mg/dL AST 19 (5-37) U/L ALT 29 (0-40) U/L Alkaline Phosphatase 111 (39-117) U/L Total Protein 7.5 (6.5-8.0) g/dL Albumin 4.1 (3.5-5.0) g/dL Independent Interpretation I performed an independent interpretation of an: CT Scan Radiology Impression Discussion of test interpretation with radiology: I have reviewed the radiologist's reading. Critical Care Time Critical Care Time Critical Care Time: Yes Total Critical Care Time: 35 Attestation: I attest to this time spent taking care of the patient, obtaining history, physical, reviewing labs, imaging, treatment of patients condition +/- specialist/hospitalist consult Discharge Plan Discharge Clinical Impression: Anorectal abscess Patient Disposition: Home, Self-Care Instructions: Abscess (ED), Sitz Bath (DC), Abscess Follow-up (ED), Abscess Incision and Drainage (DC), Incision and Drainage (ED) Additional Instructions: Take your medications as prescribed. If you were prescribed antibiotics today, it is important that you take your medication to their entirety, do not skip any doses, do not finish them early. Follow-up with your primary care provider this week. Return to the emergency department with new or worsening symptoms. Such as fevers, chills, chest pain, shortness of breath, nausea, vomiting, dizziness, headache, vision changes, lethargy In case of emergency call 911 You can take ibuprofen every 6 hours Tylenol every 4 as needed for pain or discomfort. This is for [id number] pain For severe pain you can take morphine. A narcotic has been sent to your pharmacy please take this as prescribed. Do not take more than the prescribed dose. Narcotic medications can cause addiction. Please do not mix them with alcohol. Do not take them while driving or operating machinery. Do not take them with any other narcotics. Do not share them with friends or family. They can cause constipation. Take them only for severe pain. Prescriptions: New morphine 15 mg tablet 15 mg PO Q6H PRN (Reason: pain) 5 Days Qty: 10 0RF Rx Instructions: Partial Fill upon patient request. No Action tizanidine 4 mg tablet 4 mg PO BEDTIME PRN (Reason: muscle spasticity) Qty: 90 1RF cetirizine 10 mg tablet 1 tab PO DAILY meloxicam 7.5 mg tablet 1 tab PO DAILY ciprofloxacin HCl [Cipro] 500 mg tablet 500 mg PO BID Qty: 20 0RF metronidazole 500 mg tablet 500 mg PO TID Qty: 30 0RF ibuprofen 600 mg tablet 600 mg PO Q6H PRN (Reason: fever or pain) Qty: 30 0RF valsartan 320 mg tablet 320 mg PO DAILY omeprazole 20 mg capsule,delayed release(DR/EC) 20 mg PO BID metoprolol succinate 50 mg tablet extended release 24 hr 50 mg PO DAILY atorvastatin 80 mg tablet 80 mg PO DAILY Referrals: [facility] [place] General Surgeons [Provider Group] - 2 days Stand Alone Forms: Work/School Release Print Language: Chilean
[2024-04-12 11:35] LABS: Alanine Aminotransferase 29 U/L (0-40); Albumin Level 4.1 g/dL (3.5-5.0); Alkaline Phosphatase 111 U/L (39-117); Anion Gap 13 (12-20); Aspartate Amino Transferase 19 U/L (5-37); Bilirubin Total 0.4 mg/dL (0.0-1.0); Blood Urea Nitrogen 17 mg/dL (9-16); Calcium 9.6 mg/dL (8.4-10.2); Carbon Dioxide 22 mmol/L (22-29); Chloride 110 mmol/L (96-108); Creatinine Clr Calc Pharmacy 47.8; Estimated Glomerular Filt Rate 43; Glucose Random 122 mg/dL (60-115); Potassium 3.9 mmol/L (3.3-5.1); Sodium 141 mmol/L (135-145); Total Protein 7.5 g/dL (6.5-8.0)
[2024-04-12] MEDS: iohexoL 350 MG/ML 100 ML INFUS..BTL IV (11:57)
[2024-04-12 12:00] VITALS: BP 142/77; PULSE 80; RESP 16; O2SAT 98
[2024-04-12] MEDS: Morphine Sulfate Immed Release 15 MG TABLET PO (12:21)
[2024-04-12 14:31] VITALS: BP 130/78; PULSE 79; RESP 20; TEMP 37.2; O2SAT 97
--- NOTE | 2024-04-12 15:20 | PM.CNGS ---
History of Present Illness Consult details Consult date: 04/12/24 Narrative: 63-year-old male here in the ER for a perianal abscess. He had undergone I and D of perianal abscesses in the ER last 04/08/2024. This was done by the ER staff at that time. He says that he has noticed steady recurrence of the pain and swelling since that time. He feels that the abscess his back and has not been Antoine drained He describes worsening pain. He denies any fever or chills. He denies any drainage currently. He says he is a prediabetic. Review of Systems Constitutional: Constitutional: Denies chills and Denies fever(s) Cardiovascular: Cardiovascular: Denies chest pain, Denies dyspnea and Denies dyspnea on exertion Respiratory: Respiratory: Denies cough, Denies dyspnea and Denies dyspnea on exertion Gastrointestinal: Gastrointestinal: Denies hematochezia and Denies change in bowel habits Genitourinary: Genitourinary: Denies hematuria and Denies difficulty urinating Musculoskeletal: Musculoskeletal: Denies back pain and Denies limited range of motion Neurologic: Denies focal weakness and Denies convulsions Psychiatric: Psychiatric: Denies depression and Denies mood swings PMFSH Past Medical History Medical History (Updated 04/12/24 @ 15:23 by Desean Ritchie MD) Perianal abscess Alcohol abuse On beta sonya at home Depression GERD (gastroesophageal reflux disease) Smoker Elevated cholesterol History of colon polyps Tubular adenoma Acid reflux Family History Family History Father No problems noted. Surgical History Surgical History History of esophagogastroduodenoscopy (EGD) Hx of colonoscopy Social History Social History Household Members: None Household Members Other:: alone Alcohol intake: current Alcohol intake frequency: a few times a week Patient Tobacco Use Status: Current everyday Tobacco user Tobacco use type: Cigarette Cigarette Packs Per Day: 0.5 Cigarettes Per Day: 10.0 Years Smoked: 40 Smoked in Last 30 Days: Yes e-Cigarette/Vaping Use: Never Used Use of substances other than those prescribed or required for medical reasons: No Advance Directives: No Advance Directives Information Provided: No Do you have a plan to hurt others: No Plan Current occupational status: disabled Current occupation: Right hand dominate Meds Allergies Allergy/AdvReac Type Severity Reaction Status Date / Time No Known Allergies Allergy Verified 04/12/24 09:51 [No Known Allergies*] Home Medications ?Medication ?Instructions ?Recorded ?Confirmed ?Last Taken ?Type metoprolol succinate 50 mg 50 mg PO DAILY 06/14/20 04/08/24 Unknown History tablet,extended release 24 hr omeprazole 20 mg capsule,delayed 20 mg PO BID 06/14/20 04/08/24 Unknown History release atorvastatin 80 mg tablet 80 mg PO DAILY 12/07/20 04/08/24 Unknown History cetirizine 10 mg tablet 1 tab PO DAILY 01/12/21 04/08/24 Unknown History meloxicam 7.5 mg tablet 1 tab PO DAILY 01/12/21 04/08/24 Unknown History valsartan 320 mg tablet 320 mg PO DAILY 01/17/22 04/08/24 Unknown History Physical Exam Vital Signs: Vital Signs: Last Vital Signs Temp 99.0 F 04/12/24 14:31 Pulse 79 04/12/24 14:31 Resp 20 04/12/24 14:31 BP 130/78 04/12/24 14:31 Pulse Ox 97 04/12/24 14:31 O2 Del Method Room Air 04/12/24 14:31 BMI result Body Mass Index 26.1 Const: Other: Does complain of pain in the perianal area General: comfortable and no acute distress Resp: Effort & Inspection: normal respiratory effort Cardio: Rate: regular rate GI: Other: Rectal exam shows a large fluctuant mass, appearing superficial on the left perianal area at the verge, very tender to touch, no drainage Palpation (GI): Soft to palpation Results Labs 04/12/24 11:12 04/12/24 11:12 Labs: Abnormal lab results 04/12/24 Range/Units 11:12 WBC 12.1 H (4.8-10.8) X10*3/uL RBC 4.00 L (4.60-5.80) X10*6/uL Hgb 11.8 L (14.0-18.0) g/dl Hct 35.1 L (42.0-52.0) % MPV 9.1 L (9.4-12.4) fL Immature Gran % (Auto) 0.9 H (0.0-0.4) % Neut % (Auto) 81.1 H (45-73) % Lymph % (Auto) 10.0 L (20-40) % Abs Immat Gran (auto) 0.11 H (0.00-0.03) X10*3/uL Absolute Neuts (auto) 9.8 H (2.0-8.3) x10*3/uL Chloride 110 H (96-108) mmol/L BUN 17 H (9-16) mg/dL Creatinine 1.61 H (0.5-1.4) mg/dL Random Glucose 122 H (60-115) mg/dL Short CBC 04/12/24 Range/Units 11:12 WBC 12.1 H (4.8-10.8) X10*3/uL Hgb 11.8 L (14.0-18.0) g/dl Hct 35.1 L (42.0-52.0) % Plt Count 281 (160-400) X10*3/uL BMP 04/12/24 11:12 Sodium 141 Potassium 3.9 Chloride 110 H Carbon Dioxide 22 BUN 17 H Creatinine 1.61 H Calcium 9.6 Liver Function 04/12/24 Range/Units 11:12 Total Bilirubin 0.4 (0.0-1.0) mg/dL AST 19 (5-37) U/L ALT 29 (0-40) U/L Alkaline Phosphatase 111 (39-117) U/L Albumin 4.1 (3.5-5.0) g/dL All other labs normal. Laboratory Results WBC 12.1 X10*3/uL (4.8-10.8) H 04/12/24 11:12 RBC 4.00 X10*6/uL (4.60-5.80) L 04/12/24 11:12 Hgb 11.8 g/dl (14.0-18.0) L 04/12/24 11:12 Hct 35.1 % (42.0-52.0) L 04/12/24 11:12 MCV 87.8 fL (80.0-98.0) 04/12/24 11:12 MCH 29.5 pg (27.0-33.0) 04/12/24 11:12 MCHC 33.6 g/dl (31.0-36.0) 04/12/24 11:12 RDW 12.9 % (11.0-16.0) 04/12/24 11:12 Plt Count 281 X10*3/uL (160-400) 04/12/24 11:12 MPV 9.1 fL (9.4-12.4) L 04/12/24 11:12 Immature Gran % (Auto) 0.9 % (0.0-0.4) H 04/12/24 11:12 Neut % (Auto) 81.1 % (45-73) H 04/12/24 11:12 Lymph % (Auto) 10.0 % (20-40) L 04/12/24 11:12 [place] % (Auto) 6.9 % (2-11) 04/12/24 11:12 Eos % (Auto) 0.8 % (0-4) 04/12/24 11:12 Baso % (Auto) 0.3 % (0-2) 04/12/24 11:12 Lymph # (Auto) 1.2 X10*3/uL (1.2-4.9) 04/12/24 11:12 [place] # (Auto) 0.8 X10*3/uL (0.1-1.2) 04/12/24 11:12 Eos # (Auto) 0.1 X10*3/uL (0.0-0.4) 04/12/24 11:12 Baso # (Auto) 0.0 X10*3/uL (0.0-0.2) 04/12/24 11:12 Abs Immat Gran (auto) 0.11 X10*3/uL (0.00-0.03) H 04/12/24 11:12 Absolute Neuts (auto) 9.8 x10*3/uL (2.0-8.3) H 04/12/24 11:12 Absolute Nucleated RBC 0.000 X10*3/uL (0.0-0.012) 04/12/24 11:12 Nucleated RBC % (auto) 0.0 /100WBC (0.0-0.2) 04/12/24 11:12 Sodium 141 mmol/L (135-145) 04/12/24 11:12 Potassium 3.9 mmol/L (3.3-5.1) 04/12/24 11:12 Chloride 110 mmol/L (96-108) H 04/12/24 11:12 Carbon Dioxide 22 mmol/L (22-29) 04/12/24 11:12 Anion Gap 13 (12-20) 04/12/24 11:12 BUN 17 mg/dL (9-16) H 04/12/24 11:12 Creatinine 1.61 mg/dL (0.5-1.4) H 04/12/24 11:12 Estim Creat Clear Calc 47.8 04/12/24 11:12 Estimated GFR 43 04/12/24 11:12 Random Glucose 122 mg/dL (60-115) H 04/12/24 11:12 Calcium 9.6 mg/dL (8.4-10.2) 04/12/24 11:12 Total Bilirubin 0.4 mg/dL (0.0-1.0) 04/12/24 11:12 AST 19 U/L (5-37) 04/12/24 11:12 ALT 29 U/L (0-40) 04/12/24 11:12 Alkaline Phosphatase 111 U/L (39-117) 04/12/24 11:12 Total Protein 7.5 g/dL (6.5-8.0) 04/12/24 11:12 Albumin 4.1 g/dL (3.5-5.0) 04/12/24 11:12 Impressions Abdomen/Pelvis CT 04/12/24 11:49 IMPRESSION: 1. Redemonstration of a peripherally enhancing fluid collection along the left/posterior aspect of the rectum/anus, minimally increased in size when compared to the recent CT. This measures up to 5.3 cm in greatest dimension. 2. No additional bowel wall thickening or inflammatory change. No small or large bowel obstruction. Unremarkable appendix. 3. No new intra-abdominal mass, lymphadenopathy, or ascites. Fleischner guidelines were followed. Electronically signed by: Chaitanya Baldwin MD 04/12/2024 02:12 PM EDT RP Assessment and Plan (1) Perianal abscess: Status: Acute He has a large perianal abscess examination, which appears to be superficial on the left side at the anal verge. His CAT scan also shows this perianal abscess about 5.3 cm in widest dimension I explained to him that it is best to proceed with I&D. I reviewed with him the technique of I and D under local anesthesia. I explained the risks including but not limited to bleeding and postop pain, recurrence, as well as the benefits and alternatives. He had given consent I&D was done under local anesthesia in the ER. Large amounts of pus was drained. He tolerated the procedure well I have instructed him on good wound care including hot Sitz baths I will see me in the office next week. He understands this may be recurrent if he has a fistulous disease. Procedures Date of Service Date of Service: 04/12/24 Abscess I/D Consent for Procedure: Elective - informed consent obtained Site: que-rectal and other Side (if applicable): left Anesthetic used: lidocaine 1% Amount of fluid (mL): 10 Irrigation: No Packing used?: none
[2024-04-12] MEDS: Lidocaine HCl 1 % 20 ML VIAL SUBCUT (15:32)
[2024-04-12] MEDS: Ketorolac Tromethamine 30 MG/ML VIAL IM (15:32)
[2024-04-12 15:38] VITALS: BP 130/78; PULSE 79; RESP 20; TEMP 37.2; O2SAT 97
== END 2024-04-12 15:40 | disposition home or self-care (01) ==
PROVIDERS: Physician Assistant; Emergency Provider Emergency Medicine; PCP Internal Medicine
DX: K61.2 Anorectal abscess (principal)
CPT/HCPCS: 36415; 46050; 74177; 80053; 85025; 96372; 99284; J1885; Q9967

== ENCOUNTER → 2024-04-12 10:31 | Outpatient (BNV) | payer OTHER, SELFPAY | PROVIDERS: Emergency Provider Emergency Medicine; PCP Internal Medicine; Visit Provider Surgery | DX: K61.0 Anal abscess (principal) | CPT/HCPCS: 46050; 99283 ==

== ENCOUNTER 2024-04-16 12:57 | Outpatient (AMB) | payer OTHER, SELFPAY ==
--- NOTE | 2024-04-16 13:03 | A.OFFVIS_ITS ---
Vital Signs 04/16/24 13:08 Height 5 ft 10 in Weight 184 lb BMI 26.4 Intake Visit Reasons: s/p Abscess, perirectal Intake Note: This patient prsents for [facility] emergency department follow-up for perirectal abscess. Pt c/o; reports completed antibiotics, reports feels better. 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 He tolerated procedure well. He now says he has had no problems. He is able to sit down comfortably. He no longer has any pain or tenderness. He is very happy with the outcome. [facility] Medical History Perianal abscess Alcohol abuse On beta sonya at home Depression GERD (gastroesophageal reflux disease) Smoker Elevated cholesterol History of colon polyps Tubular adenoma Acid reflux Surgical History History of esophagogastroduodenoscopy (EGD) Hx of colonoscopy Family History Father No problems noted. Social History Household Members: None Household Members Other:: alone Alcohol intake: current Alcohol intake frequency: a few times a week Patient Tobacco Use Status: Current everyday Tobacco user Tobacco use type: Cigarette Cigarette Packs Per Day: 0.5 Cigarettes Per Day: 10.0 Years Smoked: 40 e-Cigarette/Vaping Use: Never Used Current occupational status: disabled Current occupation: Right hand dominate Review of Systems Const Denies chills and Denies fever(s) Card Denies chest pain at rest GI Denies abdominal pain Denies difficulty urinating Physical Exam Vital Signs: BMI result Body Mass Index 26.4 Const General: comfortable and no acute distress Resp Effort & Inspection: normal respiratory effort GI Other: Rectal exam shows no perianal induration, fluctuance or redness or tenderness, no discharge, no sinus Assessment & Plan Assessment & Plan (1) Perianal abscess: Code(s): K61.0 - Anal abscess Category: Medical Plan: Status post I and D in the ED. He is doing very well. It does not appear that he has any fistulous disease at this time. He has no residual induration, redness, or tenderness. I explained to him that if he has any recurrence down the line, he should come back to the office to be re-evaluated. Coding Level of Care Code Est Pt Level 2 (24528) Diagnoses Perianal abscess K61.0
[2024-04-16 13:08] VITALS: BMI 26.4
== END 2024-04-16 13:16 | disposition home or self-care (01) ==
PROVIDERS: PCP Internal Medicine; Visit Provider Surgery
DX: K61.0 Anal abscess (principal)
CPT/HCPCS: 99024

== ENCOUNTER → 2024-04-16 12:57 | Outpatient (BNVA) | payer OTHER, SELFPAY | PROVIDERS: PCP Internal Medicine; Visit Provider Surgery | DX: K61.0 Anal abscess (principal) | CPT/HCPCS: 99212 ==

== ENCOUNTER 2024-07-01 15:02 | Outpatient (REF) | payer OTHER, SELFPAY ==
[2024-07-01 15:16] LABS: MANUAL DIFF FLAG NO
[2024-07-01 15:57] LABS: Basophils Absolute Auto 0.1 X10*3/uL (0.0-0.2); Basophils Percent Auto 0.6 % (0-2); Eosinophils Absolute Auto 0.2 X10*3/uL (0.0-0.4); Eosinophils Percent Auto 1.8 % (0-4); Hematocrit 38.8 % (42.0-52.0); Hemoglobin 12.6 g/dl (14.0-18.0); Imm Gran Abs Auto 0.03 X10*3/uL (0.00-0.03); Imm Gran Pct Auto 0.4 % (0.0-0.4); Lymphocytes Absolute Auto 1.6 X10*3/uL (1.2-4.9); Lymphocytes Percent Auto 19.4 % (20-40); Mean Corpuscular HGB Conc 32.5 g/dl (31.0-36.0); Mean Corpuscular Hemoglobin 28.3 pg (27.0-33.0); Mean Platelet Volume 10.2 fL (9.4-12.4); Monocytes Absolute Auto 0.6 X10*3/uL (0.1-1.2); Monocytes Percent Auto 7.1 % (2-11); Neutrophils Absolute Auto 5.9 x10*3/uL (2.0-8.3); Neutrophils Percent Auto 70.7 % (45-73); Platelet Count 312 X10*3/uL (160-400); Red Blood Count 4.46 X10*6/uL (4.60-5.80); Red Cell Distribution Width 12.7 % (11.0-16.0); White Blood Count 8.3 X10*3/uL (4.8-10.8)
[2024-07-01 16:46] LABS: Prostate Specific Antigen Scr 1.66 ng/mL (<0.05-4.0)
[2024-07-01 16:48] LABS: Albumin Level 4.3 g/dL (3.5-5.0); Anion Gap 16 (12-20); Aspartate Amino Transferase 50 U/L (5-37); Bilirubin Total 0.4 mg/dL (0.0-1.0); Blood Urea Nitrogen 20 mg/dL (9-16); Calcium 9.5 mg/dL (8.4-10.2); Carbon Dioxide 23 mmol/L (22-29); Chloride 109 mmol/L (96-108); Cholesterol 141 mg/dL (<200); Estimated Glomerular Filt Rate 48; Glucose Random 129 mg/dL (60-115); HDL Cholesterol 38 mg/dL (>40); LDL Cholesterol Calculated 41 mg/dL (<100); Potassium 4.7 mmol/L (3.3-5.1); Sodium 143 mmol/L (135-145); Total Protein 7.6 g/dL (6.5-8.0); Triglycerides 314 mg/dL (<150)
[2024-07-01 17:22] LABS: Alanine Aminotransferase 90 U/L (0-40); Alkaline Phosphatase 141 U/L (39-117)
== END 2024-07-01 15:03 | disposition home or self-care (01) ==
LOC: HO.LAB 15:02
PROVIDERS: PCP Internal Medicine; Visit Provider Internal Medicine
DX: E78.1 Pure hyperglyceridemia (principal); F17.200 Nicotine dependence, unspecified, uncomplicated; I12.9 Hypertensive chronic kidney disease with stage 1 through stage 4 chronic kidney disease, or unspecified chronic kidney disease; N40.0 Benign prostatic hyperplasia without lower urinary tract symptoms; Z12.5 Encounter for screening for malignant neoplasm of prostate; N18.9 Chronic kidney disease, unspecified
CPT/HCPCS: 36415; 80053; 80061; 84153; 85025

== ENCOUNTER 2024-10-14 09:51 | Outpatient (REF) | payer OTHER, SELFPAY ==
--- NOTE | ~2024-10-14 | US_ITS ---
EXAMINATION: US ABDOMEN LIMITED WITH LIVER ELASTOGRAPHY HISTORY: ELEVATED LFT, LIVER FIBROSIS SCORE TECHNIQUE: Real-time grayscale ultrasound imaging of the right upper quadrant was performed and images were reviewed. COMPARISON: Correlation is made with a CT of the abdomen with contrast dated 04/12/2024. FINDINGS: Liver: The right lobe of the liver measures 16.4 cm in size. The left lobe of the liver measures 11.5 cm in size. The liver demonstrates increased echotexture, consistent with steatosis. There is a 9 x 7 x 11 mm cyst in the right lobe. No intrahepatic biliary ductal dilatation is identified. There is normal hepatopedal flow in the portal vein. Ultrasound elastography of the liver was performed with 10 separate measurements of the liver parenchyma with the patient in the supine position. Measurements were obtained approximately 2 cm below Ricci's capsule and perpendicular to the capsule. Images are of satisfactory quality. The median shear wave velocity is 1.35 m/s. The interquartile range/median (IQR/median) is 0.10. Gallbladder and biliary tree: The gallbladder is unremarkable, without evidence of calculi, wall thickening, or pericholecystic fluid. There is no sonographic Cee sign. The common bile duct is normal in caliber measuring 5 mm. Right Kidney: The right kidney measures 10.5 cm in length. There is a 9 x 7 x 10 mm cyst in the interpolar region. There is no solid mass, hydronephrosis, or calculi. Trace fluid is seen adjacent to the lower pole. Pancreas: The pancreatic head, neck, and body are unremarkable. The pancreatic tail is obscured by bowel gas. Abdominal aorta and inferior vena cava: The visualized portions of the abdominal aorta and inferior vena cava are normal in caliber. There is no free fluid in the right upper quadrant. US/US abdomen faulkner w elastography IMPRESSION: Hepatomegaly and hepatic steatosis. The median shear wave velocity in the liver is 1.35 m/s, corresponding to a median liver stiffness of 5.44 kPa. The IQR/median value is 0.10. This is indicative of a quality data set. Findings are indicative of a low elastography value which rules out advanced chronic liver disease in asymptomatic patients. REFERENCE: Society of Radiologists in Ultrasound Liver Stiffness Thresholds (2020): LIVER STIFFNESS THRESHOLDS: *Shear wave velocity less than 1.3 m/s (Liver Stiffness equal or less than 5 kPa): High probability of being normal. *Shear wave velocity less than 1.7 m/s (Liver Stiffness less than 9 kPa): In the absence of other known clinical signs, rules out compensated advanced chronic liver disease. *Shear wave velocity between 1.7-2.1 m/s (Liver Stiffness 9-13 kPa): Suggestive of compensated advanced chronic liver disease but need further test for confirmation. *Shear wave velocity between 2.1-2.4 m/s (Liver Stiffness 13-17 kPa): Rules in compensated advanced chronic liver disease. *Shear wave velocity greater than 2.4 m/s (Liver Stiffness over 17 kPa): Suggestive of clinically significant portal hypertension. QUALITY OF DATA SET: *IQR/Median value equal or less than 0.15 implies a quality data set. *IQR/Median value over 0.15 implies a poor quality data set. SIGNIFICANT CHANGE FROM PRIOR EXAM: Significant change if liver stiffness measurement is 10% or greater from prior exam. OTHER CONSIDERATIONS: The stage of liver fibrosis may be overestimated in the setting of acute hepatitis, liver inflammation, elevated liver function tests, hepatic vascular congestion, obstructive cholestasis, non-fasting state, and infiltrative diseases such as amyloidosis and lymphoma. In some patients with NAFLD, the liver stiffness thresholds for compensated advanced chronic liver disease may be lower. In causes other than viral hepatitis and NAFLD, liver stiffness thresholds are not well established. Electronically signed by: Dean Santiago MD 10/14/2024 10:54 AM EDT
--- OUTSIDE RECORDS SUMMARY | 2024-10-14 11:19 | XMS_ITS | Encounter Summary ---
Author Organization [facility] Address [address] [address] Phone Care Team Providers Care Wastewater Supervisor Name Role Phone Therese Ramos MD Primary Care Provider Reason for Visit * Reason Comments Stage 3a chronic kidney disease Encounter Details Date Type Department Care Team ([facility] st Contact Info) Description 10/02/2024 3:30 PM EDT [facility] Visit [facility] [address] [phone] Jimbo Graf MD [address] [phone] Stage 3a chronic kidney disease (HCC) (Primary Dx) Social History Tobacco Use Types Packs/Day Years Used Date Smoking Tobacco: Every Day Smokeless Tobacco: Never Alcohol Use Standard Drinks/Week Comments Yes 0 (1 standard drink = 0.6 oz pure alcohol) Alcoholic Drinks/day: Occasional social drink Sex and Gender Information Value Date Recorded Sex Assigned at Not on file Legal Sex Male 4:57 PM EST Gender Identity Not on file Sexual Orientation Not on file documented as of this encounter Last Filed Vital Signs Vital Sign Reading Time Taken Comments Blood Pressure 128/78 10/02/2024 3:36 PM EDT Pulse 88 10/02/2024 3:36 PM EDT Temperature - - Respiratory Rate - - Oxygen Saturation 98% 10/02/2024 3:36 PM EDT Inhaled Oxygen Concentration - - Weight 84.8 kg (187 lb) 10/02/2024 3:36 PM EDT Height - - Body Mass Index 26.83 03/13/2024 3:02 PM EDT documented in this encounter Progress Notes * Jimbo Graf MD - 10/02/2024 3:30 PM EDT Images from the original note were not included. Patient Name: José Antonio Henson, Male Date of : 1960, 63 y.o. Date: 10/02/2024 History of Present Illness José Antonio Henson is a 63 y.o. male follow up for CKD. He denies DM but is hypertensive but well controlled at this visit on medications . He denies any active drug use. He does not have any nausea, vomiting, diarrhea, edema, PND, orthopnea, chest pain , urinary complaints or excess NSAID intake. He doesn't have any systemic complaints. In - He had a renal USS which showed a small unilateral angiolipoma. No mrd , b/l kidneys 9.6cm He has Gerd resposive only to prilosec. Has tried tums and pepcid in the past without relief. Today - No history of heart attack - Experiences stress, - Smokes a couple of cigarettes a day The following portions of the patient's chart were reviewed in this encounter and updated as appropriate: Allergies Meds Problems Med Hx Surg Hx Fam Hx EMR: Past Medical History: Diagnosis Date Chronic kidney disease Chronic obstructive pulmonary disease (HCC) Depressive disorder Elevated liver enzymes level Gastroesophageal reflux disease Hyperlipidemia Hypertension Hypertrophy (benign) of prostate without urinary obstruction and other lower urinary tract (LUTS) Metabolic syndrome Tubular adenoma Review of Systems Constitutional: Negative for chills and fever. Respiratory: Negative for cough and shortness of breath. Cardiovascular: Negative for chest pain, palpitations and leg swelling. Gastrointestinal: Negative for abdominal pain, nausea and vomiting. Genitourinary: Negative for dysuria, frequency, hematuria and urgency. Medication List Current Outpatient Medications Medication Sig Dispense Refill amLODIPine (NORVASC) 10 MG tablet Take 10 mg by mouth 1 (one) time each day D3 Max St 250 MCG (24586 UT) capsule TAKE 1 CAPSULE (10,000 UNITS TOTAL) BY MOUTH EVERY 7 (SEVEN) DAYS 12 capsule 0 metoprolol succinate XL (TOPROL-XL) 50 MG 24 hr tablet Take 1 tablet by mouth 1 (one) time each day omeprazole (PriLOSEC) [address] capsule Take 1 capsule by mouth 2 (two) times a day rosuvastatin (CRESTOR) 40 MG tablet Take 40 mg by mouth 1 (one) time each day No current facility-administered medications for this visit. Allergy List No Known Allergies Physical Exam BP 128/78 (BP Location: Right upper arm, Patient Position: Sitting, BP Cuff Size: Adult) Pulse 88 Wt 187 lb (84.8 kg) SpO2 98% BMI 26.83 kg/m?? Vitals reviewed. Constitutional: He is oriented to person, place, and time. No distress. Cardiovascular: Normal rate, regular rhythm and normal heart sounds. He exhibits no edema. Pulmonary/Chest: Effort normal and breath sounds normal. No respiratory distress. Abdominal: Soft. There is no abdominal tenderness. Musculoskeletal: Normal range of motion. Neurological: He is alert and oriented to person, place, and time. Skin: Skin is warm and dry. Labs Chemistry Lab Units 10/03/23 0000 04/09/23 0000 10/04/22 1305 SODIUM 142 140 144 POTASSIUM 4.5 4.6 4.7 CO2 mmol/L 27 25 27 BUN mg/dL 21 20 13 CREATININE mg/dL 1.60* 1.74* 1.29 CHLORIDE 108.0 106.0 107 ALBUMIN g/dL 4.4 4.3 -- EGFRNAFR -- 40 -- EGFR -- -- 56 HEMOGLOBIN -- 12.3* 13.8* HEMATOCRIT -- 38.1* 40.6* PLATELETS AUTO 10*3/UL -- 343 240 Bone Mineral Lab Units 10/03/23 0000 04/09/23 0000 10/04/22 1305 CALCIUM mg/dL 11.2* 9.6 9.1 Assessment & Plan 1. Stage 3a chronic kidney disease (HCC) Acute Kidney Injury likely due to tubular injury(resolved) Chronic Kidney Disease 3 Hypertension Proteinuria now improved ( ) His serum creatinine has improved from 2.68--> 1.6 as of . Latest cr 1.2--> 1.47 -now off fenofibrate - In past visit advised to stop fenofibrate as ~ 1% chance of cr increase. Cont statin He is unable to stop ppi. Presently bp controlled on amlodipine Plan will initiate work up and if needed will do a kidney biopsy based on work up including FLC. Especially if proteinuria > 1gm or worsening renal function No CAD- however smoker, cont metoprolol for htn. Counselled to quit smoking Will consider switch of amlo to ARB if cr stable or improving Good hydration; No NSAID's Orders Placed This Encounter Protein, Total, Random Urine w/Creatinine (Protein/Creat Ratio) Uric Acid Ferritin Iron Panel (Fe, TIBC, TSAT) Hemoglobin A1c CBC and Differential Basic Metabolic Panel Urinalysis with microscopic Urine Albumin / Creatinine Ratio Vitamin D 25 Hydroxy PTH, Intact Magnesium Phosphorus Return in about 6 months (around 04/04/2025). Jimbo Graf MD documented in this encounter Plan of Treatment Upcoming Encounters Date Type Department Care Team (Late st Contact Info) Description 04/16/2025 1:45 PM EDT Office Visit [facility] [address] [place] [address] [place] [address] Jimbo Graf MD [address] [facility] [address] [place] [address] Scheduled Orders Name Type Priority Associated Diagnoses Orde r Schedule Protein, Total, Random Urine w/Creatinine (Protein/Creat Ratio) Lab Routine Stage 3a chronic kidney disease (HCC) Expected: 04/04/2025 (Approximate), Expires: 11/02/2025 Uric Acid Lab Routine Stage 3a chronic kidney disease (HCC) Expected: 04/04/2025 (Approximate), Expires: 11/02/2025 Ferritin Lab Routine Stage 3a chronic kidney disease (HCC) Expected: 04/04/2025 (Approximate), Expires: 11/02/2025 Iron Panel (Fe, TIBC, TSAT) Lab Routine Stage 3a chronic kidney disease (HCC) Expected: 04/04/2025 (Approximate), Expires: 11/02/2025 Hemoglobin A1c Lab Routine Stage 3a chronic kidney disease (HCC) Expected: 04/04/2025 (Approximate), Expires: 11/02/2025 CBC and Differential Lab Routine Stage 3a chronic kidney disease (HCC) Expected: 04/04/2025 (Approximate), Expires: 11/02/2025 Basic Metabolic Panel Lab Routine Stage 3a chronic kidney disease (HCC) Expected: 04/04/2025 (Approximate), Expires: 11/02/2025 Urinalysis with microscopic Lab Routine Stage 3a chronic kidney disease (HCC) Expected: 04/04/2025 (Approximate), Expires: 11/02/2025 Urine Albumin / Creatinine Ratio Lab Routine Stage 3a chronic kidney disease (HCC) Expected: 04/04/2025 (Approximate), Expires: 11/02/2025 Vitamin D 25 Hydroxy Lab Routine Stage 3a chronic kidney disease (HCC) Expected: 04/04/2025 (Approximate), Expires: 11/02/2025 PTH, Intact Lab Routine Stage 3a chronic kidney disease (HCC) Expected: 04/04/2025 (Approximate), Expires: 11/02/2025 Magnesium Lab Routine Stage 3a chronic kidney disease (HCC) Expected: 04/04/2025 (Approximate), Expires: 11/02/2025 Phosphorus Lab Routine Stage 3a chronic kidney disease (HCC) Expected: 04/04/2025 (Approximate), Expires: 11/02/2025 documented as of this encounter Visit Diagnoses Diagnosis Stage 3a chronic kidney disease (HCC)- Primary documented in this encounter Care Teams Wastewater Supervisor Relationship Specialty Start Date End Date Therese Ramos MD [address] [place] [address] PCP - General Internal Medicine 06/06/22 documented as of this encounter
--- OUTSIDE RECORDS SUMMARY | 2024-10-14 11:20 | XMS_ITS | Clinical Summary ---
Author Organization [facility] [address] [place] [address] Phone Care Team Providers Care Mushroom Growing Supervisor Name Role Phone Therese Ramos MD Primary Care Provider Allergies No known active allergies Medications metoprolol succinate XL (TOPROL-XL) 50 MG 24 hr tablet Take 1 tablet by mouth 1 (one) time each day Active omeprazole (PriLOSEC) [address] capsule Take 1 capsule by mouth 2 (two) times a day Active amLODIPine (NORVASC) 10 MG tablet Take 10 mg by mouth 1 (one) time each day 2 Active rosuvastatin (CRESTOR) 40 MG tablet Take 40 mg by mouth 1 (one) time each day [address] 250 MCG (33591 UT) capsule TAKE 1 CAPSULE (10,000 UNITS TOTAL) BY MOUTH EVERY 7 (SEVEN) DAYS 12 capsule [address] 250 MCG (71472 UT) capsule TAKE 1 CAPSULE (10,000 UNITS TOTAL) BY MOUTH EVERY 7 (SEVEN) DAYS 12 capsule 5 10/06/19 25 Discontinued Active Problems Problem Noted Date Diagnosed Date Stage 3a chronic kidney disease 10/11/2022 Stage 3b chronic kidney disease 07/05/2022 Hypertension 06/07/2022 Chronic kidney disease 10/06/2020 Essential hypertension 10/06/2020 Encounters Date Type Department Care Team Description 10/02/2024 3:30 PM EDT Office Visit [facility] [address] [place] [address] Jimbo Graf MD Stage 3a chronic kidney disease (HCC) (Primary Dx) 10/02/2024 Refill [facility] [address] [place] [address] Jimbo Graf MD 08/24/2024 Refill [facility] [address] [place] [address] Jimbo Graf MD from Last 3 Months Social History Tobacco Use Types Packs/Day Years Used Date Smoking Tobacco: Every Day Smokeless Tobacco: Never Tobacco Cessation:Ready to Q uit: Not Asked; Counseling Given: Not Answered Alcohol Use Standard Drinks/Week Comments Yes 0 (1 standard drink = 0.6 oz pure alcohol) Alcoholic Drinks/day: Occasional social drink Sex and Gender Information Value Date Recorded Sex Assigned at Not on file Legal Sex Male 4:57 PM EST Gender Identity Not on file Sexual Orientation Not on file Last Filed Vital Signs Vital Sign Reading Time Taken Comments Blood Pressure 128/78 10/02/2024 3:36 PM EDT Pulse 88 10/02/2024 3:36 PM EDT Temperature - - Respiratory Rate - - Oxygen Saturation 98% 10/02/2024 3:36 PM EDT Inhaled Oxygen Concentration - - Weight 84.8 kg (187 lb) 10/02/2024 3:36 PM EDT Height 177.8 cm (5' 10 ) 03/13/2024 3:02 PM EDT Body Mass Index 26.83 03/13/2024 3:02 PM EDT Plan of Treatment Upcoming Encounters Date Type Department Care Team (Late st Contact Info) Description 04/16/2025 1:45 PM EDT [facility] [address] [place] [address] Jimbo Graf MD [address] [facility] [address] [place] [address] Health Maintenance Due Date Last Done Comments Pneumococcal Vaccine: Pediat rics (0 to 5 Years) and At-Risk Patients (6 to 64 Years) (1 of 2 - PCV) 12[birth year]09/1965 Colorectal Cancer Screening: Annual FOBT 12/09/2008 Colorectal Cancer Screening: Colonoscopy 12/09/2008 Colorectal Cancer Screening: Sigmoidoscopy 12/09/2008 Influenza Vaccine (#1) 2024 Hepatitis B Vaccine Aged Out No longe r eligible based on patient's age to complete this topic Insurance [facility] ([id number]) [facility] ([id number]) Care Teams Mushroom Growing Supervisor Relationship Specialty Start Date End Date Therese Ramos MD [address] [place] [address] [address] [place], [place] PCP - General Internal Medicine 06/06/22
--- OUTSIDE RECORDS SUMMARY | 2024-10-14 11:20 | XMS_ITS | Encounter Summary ---
Author Organization [facility] Address [address] [facility] [address] [place] [address] Phone Care Team Providers Care Salon Leader Name Role Phone Therese Ramos MD Primary Care Provider Reason for Visit * Reason Comments Med Refill Encounter Details Date Type Department Care Team (Late Contact Info) Description 10/02/2024 Refill [facility] [address] [place] [address] Jimbo Graf MD [address] [address] Social History Tobacco Use Types Packs/Day Years [...] on file documented as of this encounter Plan of Treatment Upcoming Encounters Date Type Department Care Team (Late st Contact Info) Description 04/16/2025 1:45 PM EDT Office Visit [facility] [address] [place] [address] Jimbo Graf MD [address] [facility] [address] [place] [address] documented as of this encounter Visit Diagnoses Not on filedocumented in this encounter Care Teams Salon Leader Relationship Specialty Start Date End Date Therese Ramos MD [facility] PCP - General Internal Medicine 06/06/22 documented as of this encounter
== END 2024-10-14 09:52 | disposition home or self-care (01) ==
LOC: HO.US 09:51
PROVIDERS: PCP Internal Medicine; Visit Provider Internal Medicine
DX: K74.00 Hepatic fibrosis, unspecified (principal)
CPT/HCPCS: 76705; 76981

== ENCOUNTER → 2024-10-14 10:14 | Outpatient (BNV) | payer OTHER, SELFPAY | PROVIDERS: PCP Internal Medicine; Visit Provider Radiology Diagnostic Radiology | DX: R16.0 Hepatomegaly, not elsewhere classified (principal) | CPT/HCPCS: 76981 ==

== ENCOUNTER 2024-12-09 10:40 | Outpatient (REF) | payer OTHER, SELFPAY ==
[2024-12-09 11:30] LABS: Alanine Aminotransferase 46 U/L (0-40); Albumin Level 4.3 g/dL (3.5-5.0); Alkaline Phosphatase 104 U/L (39-117); Anion Gap 12 (12-20); Aspartate Amino Transferase 24 U/L (5-37); Bilirubin Total 0.3 mg/dL (0.0-1.0); Blood Urea Nitrogen 21 mg/dL (9-16); Calcium 9.7 mg/dL (8.4-10.2); Carbon Dioxide 25 mmol/L (22-29); Chloride 108 mmol/L (96-108); Estimated Glomerular Filt Rate 53; Glucose Random 124 mg/dL (60-115); Potassium 4.8 mmol/L (3.3-5.1); Sodium 140 mmol/L (135-145); Total Protein 7.6 g/dL (6.5-8.0)
[2024-12-09 11:47] LABS: Ferritin 193 ng/mL (20-250)
--- OUTSIDE RECORDS SUMMARY | 2024-12-09 11:56 | XMS_ITS | Clinical Summary ---
Author Organization [facility] [address] [place] [address] Phone Care Team Providers Care Legend Maker Name Role Phone Therese Ramos MD Primary [...] by mouth 1 (one) time each day 04/06/2022 Active rosuvastatin (CRESTOR) 40 MG tablet Take 40 mg by mouth 1 (one) time each day 03/30/[address] MCG (84602 UT) capsule TAKE 1 CAPSULE (10,000 UNITS TOTAL) BY MOUTH EVERY 7 (SEVEN) DAYS 12 capsule 10/05/2024 Active Active Problems Problem Noted Date Diagnosed Date Stage 3a chronic kidney disease 10/11/2022 Stage 3b chronic kidney disease 07/05/2022 Hypertension 06/07/2022 Chronic kidney disease 10/06/2020 Essential hypertension 10/06/2020 Encounters Date Type Department Care Team Description 10/02/2024 3:30 PM EDT Office Visit [facility] the [address] [place] [address] Jimbo Graf MD Stage 3a chronic kidney disease (HCC) (Primary Dx) 10/02/2024 Refill [facility] [address] [place] [address] Jimbo Graf [...] Visit [facility] [address] [place] [address] [place] [address] Jimbo Graf MD [address] [facility] [address] [place] [id number] Health Maintenance Due Date Last Done Comments Pneumococcal Vaccine: 50+ Ye ars (1 of 2 - PCV) 12/09/1978 Colorectal Cancer Screening: Annual FOBT 12/09/2008 Colorectal Cancer Screening: Colonoscopy 12/09/2008 Colorectal Cancer Screening: Sigmoidoscopy 12/09/2008 Influenza Vaccine (Season Ended) 2025 Hepatitis B Vaccine Aged Out No longe r eligible based on patient's age to complete this topic Insurance [address] [place] [place] [id number] [facility] M[facility] ([id number]) [facility] ([id number]) Care Teams Legend Maker Relationship Specialty Start Date End Date Therese Ramos MD [address] [place] [address] [address] [place], [place] PCP - General Internal Medicine 06/06/22
[2024-12-09 12:16] LABS: HBS Num1 400.32 mIU/mL (0-7.99); HBc Num1 0.06 S/CO (0.00-0.79); HBsAGNum1 0.41 S/CO (0.00-0.99); Hepatitis B Core Antibody Nonreactive (Nonreactive); Hepatitis B Surface Antigen Negative (Negative); ~Hepatitis B Surface Antibody REACTIVE (Nonreactive)
[2024-12-10 14:09] LABS: HCV RNA PCR Qn <1.18 NOT DETECTED Log IU/mL (NOT DETECTED); HCV RNA PCR Qn <15 NOT DETECTED IU/mL (NOT DETECTED)
== END 2024-12-09 10:41 | disposition home or self-care (01) ==
LOC: HO.LAB 10:40
PROVIDERS: PCP Internal Medicine; Visit Provider Internal Medicine
DX: N18.9 Chronic kidney disease, unspecified (principal); B35.1 Tinea unguium; L63.8 Other alopecia areata; R74.01 Elevation of levels of liver transaminase levels
CPT/HCPCS: 36415; 80053; 82728; 86704; 86706; 87340; 87522

== ENCOUNTER 2025-01-07 12:42 | Outpatient (AMB) | payer OTHER, SELFPAY ==
[2025-01-07 12:44] VITALS: BMI 26.4
--- NOTE | 2025-01-07 12:44 | A.OFFVIS_ITS ---
Vital Signs 01/07/25 12:44 Height 5 ft 10 in Weight 184 lb BMI 26.4 Intake Visit Reasons: OV - Right Shdr Pain, last inj 03/06/24 Intake Note: José Antonio is a 64 year old male who presents with complaints of intermittent discomfort along the lateral aspect of his right shoulder. The patient was given a cortisone injection into his right shoulder on 03/06/2024. He states he got fairly good relief from that injection. He does take ibuprofen as needed for his discomfort. He continues with his home stretching program. Anthropology And Archeology Instructor Required: Yes Anthropology And Archeology Instructor Language: Correctional Counselor/Case Manager Services: Anthropology And Archeology Instructor Present Anthropology And Archeology Instructor Name: Buddy JOSH/YOVANY Allergies No Known Allergies (No Known Allergies*) Allergy (Verified 01/07/25 12:44) Medication List - Last Reconciled 01/08/25 by Augusto Miller MD atorvastatin 80 mg PO DAILY cetirizine 1 tab PO DAILY ciprofloxacin HCl (Cipro) 500 mg PO BID ibuprofen 600 mg PO Q6H PRN meloxicam 1 tab PO DAILY metoprolol succinate ER 50 mg PO DAILY metronidazole 500 mg PO TID morphine 15 mg PO Q6H PRN 5 days omeprazole 20 mg PO BID tizanidine 4 mg PO BEDTIME PRN valsartan 320 mg PO DAILY PFSH Medical History Perianal abscess Alcohol abuse On beta sonya at home Depression GERD (gastroesophageal reflux disease) Smoker Elevated cholesterol History of colon polyps Tubular adenoma Acid reflux Surgical History History of esophagogastroduodenoscopy (EGD) Hx of colonoscopy Family History Father No problems noted. Social History Household Members: None Household Members Other:: alone Alcohol intake: current Alcohol intake frequency: a few times a week Patient Tobacco Use Status: Current everyday Tobacco user Tobacco use type: Cigarette Cigarette Packs Per Day: 0.5 Cigarettes Per Day: 10.0 Years Smoked: 40 e-Cigarette/Vaping Use: Never Used Current occupational status: disabled Current occupation: Right hand dominate Physical Exam Vital Signs: BMI result Body Mass Index 26.4 Const Other: Well-nourished well-developed very friendly male awake alert and oriented x3 in no acute distress Extrem Other: Bilateral upper extremity examination shows good capillary refill, no skin lesions noted, normal sensation light touch Right shoulder examination shows slightly decreased range of motion when compared to his left shoulder, 5/5 strength with supraspinatus testing, positive impingement signs, no instability Assessment & Plan Assessment & Plan (1) Right shoulder pain: Code(s): M25.511 - Pain in right shoulder Category: Medical Plan Mr. Henson presents with right shoulder pain due to impingement syndrome. I had a lengthy discussion with the patient regarding the treatment options. At this point the patient's symptoms are tolerable to him. We will hold off on another cortisone injection. He will continue with his home stretching program to prevent stiffness. He will follow up with me on an as-needed basis should his symptoms worsen in any way. Feel free to call me at any time should questions regarding his orthopedic management arise. I spent 22 minutes in reviewing the patient's records and imaging studies, seeing the patient and documenting in the medical record. Coding Level of Care Code Est Pt Level 3 (73759) Complex EM visit Add On G2211 Diagnoses Right shoulder pain M25.511
--- OUTSIDE RECORDS SUMMARY | 2025-01-07 14:30 | XMS_ITS | Patient Health Record ---
Author Organization [facility] Address [address] [place] [address] Care Team Providers Care Oven Press Tender Name Role Phone Richard Therese Primary Care Provider Unavailab Nathan Davidson Unavailable [phone] Reason For Referral No Information Medications Medication SIG (Take, Route, Frequency, Duration) Notes Start Date End Date Status Metoprolol & Diet Manage Prod 50 MG Orally Active Work Note . . . This patient con tinues to have severe pain and is seek a second opinion and continues disabled from work 03/23/2015 Active Atorvastatin Calcium Active Work Note . .this patient is cur rently disabled from work and will be out indefinitely effective 11/29/14 . . for . 11/30/2014 Active Naproxen 500 MG 1 tablet as needed O rally every 12 hrs for 30 Active AFO-fixed fixed 1 custom made left l eg ptb afo brace with soft padding for the heel 12/09/2014 Active Physical Therapy . . . 2-3x/week for 3- 4 weeks 02/17/2015 Active Aspirin 81 MG 1 tablet Orally Once a day Active Social History Tobacco use other than smoking: Question Answer Notes Are you an other tobacco user? No Problems Problem Type SNOMED Code ICD Code Onset Dates Problem Status W/U Status Risk Notes Problem Bursitis (78001753) Bursitis (727.3) Active confirmed Problem Myositis (45995701) Myositis (729.1) Active confirmed Problem Pain in limb (38140480) Pain in Limb (729.5) Active confirmed Problem Plantar fasciitis (043281219) Plantar Fasciitis (728.71) Active confirmed Problem Closed fracture of calcaneus (01434653) Stress Fx Calcaneus (825.0) Active confirmed Plan Of Treatment No Information Insurance Providers Payer Name Payer Address Payer Phone Subscriber Number Group Number Insured Name Patient Relationship to Insured Coverage Start Date [facility]age End Date [facility] [address] [place] [address] [phone] [id number] 1953 José Antonio Henson Self - patient is the insured Medical (General) History Medical History History ICD Code Angina Arthritis Cholesterol Chicken pox
== END 2025-01-07 13:31 | disposition home or self-care (01) ==
LOC: HO.HOS 12:42
PROVIDERS: PCP Internal Medicine; Visit Provider Orthopaedic Surgery
DX: M25.511 Pain in right shoulder (principal)
CPT/HCPCS: 99213; G2211

== ENCOUNTER → 2025-01-07 12:42 | Outpatient (BNVA) | payer OTHER, SELFPAY | PROVIDERS: PCP Internal Medicine; Visit Provider Orthopaedic Surgery | DX: M25.511 Pain in right shoulder (principal) | CPT/HCPCS: 99212 ==

== ENCOUNTER 2025-04-07 12:34 | Outpatient (AMB) | payer OTHER, SELFPAY ==
--- NOTE | 2025-04-07 12:52 | MHC.OFFVIS ---
Intake Visit Reasons: OV - Right shoulder pain follow up Intake Note: José Antonio in a 64-year-old male who presents with complaints of intermittent discomfort along the lateral aspect of his right shoulder. He continues with his home stretching program. He denies any numbness or tingling extending into either of his upper extremities. He does not take any medicines for his discomfort. Allergies No Known Allergies (No Known Allergies*) Allergy (Verified 01/07/25 12:44) Medication List - Last Reconciled 04/07/25 by Augusto Miller MD atorvastatin 80 mg PO DAILY cetirizine 1 tab PO DAILY ciprofloxacin HCl (Cipro) 500 mg PO BID ibuprofen 600 mg PO Q6H PRN meloxicam 1 tab PO DAILY metoprolol succinate ER 50 mg PO DAILY metronidazole 500 mg PO TID morphine 15 mg PO Q6H PRN 5 days omeprazole 20 mg PO BID tizanidine 4 mg PO BEDTIME PRN valsartan 320 mg PO DAILY PFSH Medical History Perianal abscess Alcohol abuse On beta sonya at home Depression GERD (gastroesophageal reflux disease) Smoker Elevated cholesterol History of colon polyps Tubular adenoma Acid reflux Surgical History History of esophagogastroduodenoscopy (EGD) Hx of colonoscopy Family History Father No problems noted. Social History Household Members: None Household Members Other:: alone Alcohol intake: current Alcohol intake frequency: a few times a week Patient Tobacco Use Status: Current everyday Tobacco user Tobacco use type: Cigarette Cigarette Packs Per Day: 0.5 Cigarettes Per Day: 10.0 Years Smoked: 40 e-Cigarette/Vaping Use: Never Used Current occupational status: disabled Current occupation: Right hand dominate Physical Exam Const Other: Well-nourished well-developed very friendly male awake alert and oriented x3 in no acute distress Extrem Other: Right shoulder examination shows slightly decreased range of motion when compared to his left shoulder, 4+ out of 5 strength with supraspinatus testing, positive impingement signs, no instability Results Reviewed Results Reviewed: MRI of the patient's right shoulder shows severe acromioclavicular joint narrowing, a type 2 acromion, no acute bony abnormalities Assessment & Plan Assessment & Plan (1) Impingement of right shoulder: Code(s): M25.811 - Other specified joint disorders, right shoulder Category: Medical Plan José Antonio presents with intermittent right shoulder discomfort due to impingement syndrome. I had a lengthy discussion with the patient regarding the treatment options. At this point the patient's symptoms are tolerable to him. He will continue with his home stretching program. The do's and don'ts of lifting were discussed at length with the patient. He will follow up with me on an as-needed basis should his symptoms worsen in any way. Feel free to call me at any time should questions regarding his orthopedic management arise. I spent 20 minutes in reviewing the patient's records and imaging studies, seeing the patient and documenting in the medical record. Coding Level of Care Code Est Pt Level 3 (10476) Complex EM visit Add On G2211 Diagnoses Impingement of right shoulder M25.811
--- OUTSIDE RECORDS SUMMARY | 2025-04-07 16:37 | XMS_ITS | Patient Health Record ---
Author Organization [facility] Address [address] [place] [address] Care Team Providers Care Wellness Educator Name Role Phone Therese Ramos Primary Care Provider Unavailab Nathan Davidson Unavailable [phone] Reason For Referral No Information Medications Medication [...] will be out indefinitely effective 11/29/14 . .; Duration: . 11/30/2014 Active Naproxen 500 MG 1 tablet as needed O rally every 12 hrs; Duration: 30 Activ e AFO-fixed fixed 1 custom made left l eg ptb afo brace with soft padding for the heel 12/09/2014 Active Physical Therapy . . . 2-3x/week; Durat ion: 3-4 weeks 02/17/2015 Active Aspirin 81 MG 1 tablet Orally Once a day Active Social History Tobacco use other than smoking: Question Answer Notes Are you an other tobacco user? No Problems Problem Type SNOMED Code ICD Code Onset Dates Problem Status W/U Status Risk Notes Problem Bursitis (96459961) Bursitis (727.3) Active confirmed Problem Myositis (42405495) Myositis (729.1) Active confirmed Problem Pain in limb (18866088) Pain in Limb (729.5) Active confirmed Problem Plantar fasciitis (660279984) Plantar Fasciitis (728.71) Active confirmed Problem Closed fracture of calcaneus (99421720) Stress Fx Calcaneus (825.0) Active confirmed Plan Of Treatment No Information Insurance Providers Payer Name Payer Address Payer Phone Subscriber Number Group Number Insured Name Patient Relationship to Insured Coverage Start Date Coverage End Date [facility] All Others [address] [place] [address] [id number] 1953 José Antonio Henson Self - patient is the insured Medical (General) History Medical History History ICD Code Angina Arthritis Cholesterol Chicken pox
--- OUTSIDE RECORDS SUMMARY | 2025-04-07 16:37 | XMS_ITS | Clinical Summary ---
Author Organization [facility] [address] [place] [address] Phone Care Team Providers Care Ortho Nurse Name Role Phone Therese Ramos MD Primary Care Provider [phone] Allergies No known active allergies Medications metoprolol [...] 03/30/[address] MCG (23365 UT) capsule TAKE 1 CAPSULE (10,000 UNITS TOTAL) BY MOUTH EVERY 7 (SEVEN) DAYS 12 capsule 10/05/2024 Active Active Problems Problem Noted Date Diagnosed Date Stage 3a chronic kidney disease 10/11/2022 Stage 3b chronic kidney disease 07/05/2022 Hypertension 06/07/2022 Chronic kidney disease 10/06/2020 Essential hypertension 10/06/2020 Encounters Date Type Department Care Team Description 04/04/2025 Orders Only [facility] [address] [place] [address] Jimbo Graf MD Stage 3a chronic kidney disease (HCC) from Last 3 Months Social History Tobacco [...] Visit [facility] [address] [place] [facility] [place] [address] Jimbo Graf MD [address] [facility] [address] [place] [address] Health Maintenance Due Date Last Done Comments Pneumococcal Vaccine: 50+ Ye ars (1 of 2 - PCV) 12/09/1978 Colorectal Cancer Screening: Annual FOBT 12/09/2008 Colorectal Cancer Screening: Colonoscopy 12/09/2008 Colorectal Cancer Screening: Sigmoidoscopy 12/09/2008 Influenza Vaccine (#1) 2025 Hepatitis B Vaccine Aged Out No longe r eligible based on patient's age to complete this topic Insurance [facility] ([id number]) [facility] ([id number]) Care Teams Ortho Nurse Relationship Specialty Start Date End Date Therese Ramos MD [facility] [address] [place], [place] PCP - General Internal Medicine 06/06/22
--- OUTSIDE RECORDS SUMMARY | 2025-04-07 16:37 | XMS_ITS | Encounter Summary ---
Author Organization [facility] Address [address] [address] Phone Care Team Providers Care Custom Protection Officer Name Role Phone Therese Ramos MD Primary Care Provider [phone] Encounter Details Date Type Department Care Team ([facility] Contact Info) Description 04/04/2025 Orders Only [facility] [address] [place] [address] Jimbo Graf MD [address] [address] Stage 3a chronic kidney disease (HCC) Social History Tobacco Use Types Packs/Day Years [...] Office Visit [facility] [address] [place] [address] Jimbo Graf MD [address] [address] documented as of this encounter Visit Diagnoses Diagnosis Stage 3a chronic kidney disease (HCC) documented in this encounter Care Teams Custom Protection Officer Relationship Specialty Start Date End Date Therese Ramos MD [facility] [address] PCP - General Internal Medicine 06/06/22 documented as of this encounter
== END 2025-04-07 12:52 | disposition home or self-care (01) ==
LOC: HO.HOS 12:34
PROVIDERS: PCP Internal Medicine; Visit Provider Orthopaedic Surgery
DX: M25.811 Other specified joint disorders, right shoulder (principal)
CPT/HCPCS: 99213; G2211

== ENCOUNTER → 2025-04-07 12:34 | Outpatient (BNVA) | payer OTHER, SELFPAY | PROVIDERS: PCP Internal Medicine; Visit Provider Orthopaedic Surgery | DX: M25.511 Pain in right shoulder (principal); M25.811 Other specified joint disorders, right shoulder | CPT/HCPCS: 99212 ==

== ENCOUNTER 2025-06-02 13:16 | Outpatient (REF) | payer OTHER, SELFPAY ==
[2025-06-02 13:31] LABS: MANUAL DIFF FLAG NO
[2025-06-02 14:09] LABS: Hematocrit 37.2 % (42.0-52.0); Hemoglobin 12.3 g/dl (14.0-18.0); Imm Gran Abs Auto 0.03 X10*3/uL (0.00-0.03); Imm Gran Pct Auto 0.4 % (0.0-0.4); Lymphocytes Absolute Auto 1.5 X10*3/uL (1.2-4.9); Mean Corpuscular HGB Conc 33.1 g/dl (31.0-36.0); Mean Corpuscular Hemoglobin 28.8 pg (27.0-33.0); Mean Corpuscular Volume 87.1 fL (80.0-98.0); NRBC Abs Auto 0.000 X10*3/uL (0.0-0.012); NRBC Pct Auto 0.0 /100WBC (0.0-0.2); Platelet Count 261 X10*3/uL (160-400); Red Blood Count 4.27 X10*6/uL (4.60-5.80); White Blood Count 7.5 X10*3/uL (4.8-10.8)
[2025-06-02 14:19] LABS: Appearance Urine Cloudy; Glucose Urine UA 100 mg/dL (Negative); PH 5.5 (5.0-9.0); Specific Gravity - Urine 1.020 (1.005-1.025); UMIC TRIGGER UA YES
[2025-06-02 14:38] LABS: Parathyroid Hormone Intact 81.2 pg/mL (8.7-77.1)
--- OUTSIDE RECORDS SUMMARY | 2025-06-02 14:56 | XMS_ITS | Patient Health Record ---
Author Organization [facility] Address [address] [place] [address] Care Team Providers Care Obstetrics Technician Name Role Phone Therese Ramos Primary Care Provider Unavailab dale Ortiztereza Nathan Unavailable [phone] Reason For Referral No Information Medications Medication [...] Status W/U Status Risk Notes Problem Bursitis (91505603) Bursitis (727.3) Active confirmed Problem Myositis (65743187) Myositis (729.1) Active confirmed Problem Pain in limb (75457758) Pain in Limb (729.5) Active confirmed Problem Plantar fasciitis (499989265) Plantar Fasciitis (728.71) Active confirmed Problem Closed fracture of calcaneus (64408078) Stress Fx Calcaneus (825.0) Active confirmed Plan Of Treatment No Information Insurance Providers Payer Name Payer Address Payer Phone Subscriber Number Group Number Insured Name Patient Relationship to Insured Coverage Start Date Coverage End Date [facility] All Others [address] [place] [address] [id number] 1953 José Antonio Henson Self - patient is the insured Medical (General) History Medical History History ICD Code Angina Arthritis Cholesterol Chicken pox
[2025-06-02 15:01] LABS: Anion Gap 14 (12-20); Blood Urea Nitrogen 21 mg/dL (9-16); Calcium 9.3 mg/dL (8.4-10.2); Carbon Dioxide 23 mmol/L (22-29); Chloride 110 mmol/L (96-108); Estimated Glomerular Filt Rate 53; Iron 80 mcg/dL (45-160); Magnesium 1.5 mg/dL (1.6-2.6); Percent Iron Saturation 27 % (15-50); Potassium 4.3 mmol/L (3.3-5.1); Sodium 143 mmol/L (135-145); Total Iron Binding Capacity 299 mcg/dL (228-428); Unsaturated Iron Binding 219 ug/dL; Uric Acid 7.5 mg/dL (3.4-7.0)
[2025-06-02 15:06] LABS: Ferritin 170 ng/mL (20-250)
[2025-06-02 16:33] LABS: Microalbum/Creatinine Ratio Ur 292.3 ug/mg cr (<30); Protein/Creatinine Ratio, Ur 0.52 (<0.2); Total Protein Urine Random 209 mg/dL (<12)
== END 2025-06-02 13:17 | disposition home or self-care (01) ==
LOC: HO.LAB 13:16
PROVIDERS: PCP Internal Medicine; Visit Provider Internal Medicine
DX: N18.31 Chronic kidney disease, stage 3a (principal); Z13.1 Encounter for screening for diabetes mellitus
CPT/HCPCS: 36415; 80048; 81001; 82043; 82306; 82570; 82728; 83036; 83540; 83735; 83970; 84100; 84156; 84550; 85025

== ENCOUNTER 2025-06-22 14:08 | Outpatient (REF) | payer OTHER, SELFPAY ==
[2025-06-22 15:19] LABS: Alanine Aminotransferase 73 U/L (0-40); Albumin Level 4.5 g/dL (3.5-5.0); Alkaline Phosphatase 106 U/L (39-117); Anion Gap 12 (12-20); Aspartate Amino Transferase 56 U/L (5-37); Blood Urea Nitrogen 25 mg/dL (9-16); Calcium 8.9 mg/dL (8.4-10.2); Carbon Dioxide 22 mmol/L (22-29); Chloride 111 mmol/L (96-108); Estimated Glomerular Filt Rate 43; Potassium 4.2 mmol/L (3.3-5.1); Sodium 141 mmol/L (135-145); Total Protein 7.3 g/dL (6.5-8.0)
--- OUTSIDE RECORDS SUMMARY | 2025-06-22 17:32 | XMS_ITS | Clinical Summary ---
Author Organization [facility] [address] [place] [address] Phone Care Team Providers Care Studio Producer Name Role Phone Therese Ramos MD Primary [...] 03/30/[address] 250 MCG (60145 UT) capsule TAKE 1 CAPSULE (10,000 UNITS TOTAL) BY MOUTH EVERY 7 (SEVEN) DAYS 12 capsule 10/05/2024 Active Dapagliflozin Propanediol 10 MG tablet Take 10 mg by mouth 1 (one) time each day in the morning 30 tablet 11 06/11/2025 06/11/20 26 Active Active Problems Problem Noted Date Diagnosed Date Stage 3a chronic kidney disease 10/11/2022 Stage 3b chronic kidney disease 07/05/2022 Hypertension 06/07/2022 Chronic kidney disease 10/06/2020 Essential hypertension 10/06/2020 Encounters Date Type Department Care Team Description 06/11/2025 2:15 PM EST Office Visit [facility] [address] [place] [address] Jimbo Graf MD Stage 3a chronic kidney disease (HCC) (Primary Dx); Hypertension 04/04/2025 Orders Only [facility] [address] [place] [phone] Jimbo Graf MD Stage 3a chronic kidney [...] Sign Reading Time Taken Comments Blood Pressure 118/80 06/11/2025 1:51 PM EST Pulse 77 06/11/2025 1:51 PM EST Temperature - - Respiratory Rate - - Oxygen Saturation 98% 06/11/2025 1:51 PM EST Inhaled Oxygen Concentration - - Weight 84.9 kg (187 lb 3.2 oz) 06/11/2025 1:51 P M EST Height 177.8 cm (5' 10 ) 03/13/2024 3:02 PM EDT Body Mass Index 26.86 03/13/2024 3:02 PM EDT Plan of Treatment Upcoming Encounters Date Type Department Care Team (Late st Contact Info) Description 09/03/2025 2:15 PM EST Office Visit [facility] [address] [place] [phone] Jimbo Graf MD [address] [address] 09/03/2025 2:30 PM EST Office Visit [facility] [address] [place] [phone] Jimbo Graf MD [address] [address] Health Maintenance Due Date Last Done Comments Pneumococcal Vaccine: 50+ Ye ars (1 of 2 - PCV) 12/09/1978 Colorectal Cancer Screening: Annual FOBT 12/09/2008 Colorectal Cancer Screening: Colonoscopy 12/09/2008 Colorectal Cancer Screening: Sigmoidoscopy 12/09/2008 Influenza Vaccine (#1) 2025 Hepatitis B Vaccine Aged Out No longe r eligible based on patient's age to complete this topic Procedures Procedure Name Priority Date/Time Associated Diagnosis Comments ALBUMIN, URINE, RANDOM Routine 06/02/2025 1:55 PM EST URINALYSIS WITH MICROSCOPIC Routine 06/02/2025 1:55 PM EST Stage 3a chronic kidney disease (HCC) PROTEIN / CREATININE RATIO, URINE Routine 06/02/2025 1:55 PM EST Stage 3a chronic kidney disease (HCC) PTH, INTACT (HC) Routine 06/02/2025 1:29 PM EST PHOSPHATE ( PHOSPHORUS) Routine 06/02/2025 1:29 PM EST Stage 3a chronic kidney disease (HCC) MAGNESIUM Routine 06/02/2025 1:29 PM EST Stage 3a chronic kidney disease (HCC) VITAMIN D 25 HYDROXY Routine 06/02/2025 1:29 PM EST Stage 3a chronic kidney disease (HCC) BASIC METABOLIC PANEL Routine 06/02/2025 1:29 PM EST Stage 3a chronic kidney disease (HCC) CBC AND DIFFERENTIAL Routine 06/02/2025 1:29 PM EST Stage 3a chronic kidney disease (HCC) HEMOGLOBIN A1C Routine 06/02/2025 1:29 PM EST Stage 3a chronic kidney disease (HCC) IRON PANEL (FE, TIBC, TSAT) Routine 06/02/2025 1:29 PM EST Stage 3a chronic kidney disease (HCC) FERRITIN Routine 06/02/2025 1:29 PM EST Stage 3a chronic kidney disease (HCC) URIC ACID Routine 06/02/2025 1:29 PM EST Stage 3a chronic kidney disease (HCC) from Last 3 Months Results * (ABNORMAL) Protein, Total, Random Urine w/Creatinine (Protein/Creat Ratio) (06/02/2025 1:55 PM EST) Protein Urine Random 209(H) <12 mg/dL See order comments Protein/Creati nine Ratio, Urine 0.52(H) <0.2 See order comments Comment: The spot urine protein:creatinine ratio may increase to 0.3 during normal . Urine specimen (specimen) Urine specimen obtained by clean catch procedure / Unknown 06/02/2025 1:55 PM EST 06/02/2025 1:55 PM EST Jimbo Graf MD LAB URINE ORDERABLES Final Result Performing Organization Address [facility] de Phone Number BAJADERO See order comments [place] [address] * (ABNORMAL) Albumin, urine, random (06/02/2025 1:55 PM EST) Creatinine, Urine 402.65 mg/dL Se e order comments Urine Microalbumin 1,177.0 mg/L See order comments Microalbumin/Crea tinine Ratio 292.3(H) <30 ug/mg cr See order comments Comment: Albumin/Creatinine Ratio Reference Ranges: Normal: < 30 ug/mg creatinine Microalbuminuria: 30 - 300 ug/mg creatinine Clinical Albuminuria: > 300 ug/mg creatinine 06/02/2025 1:55 PM EST 06/02/2025 1:55 PM EST us Jimbo Graf MD LAB URINE ORDERABLES Final Result Performing Organization Address [facility] de Phone Number BAJADERO See order comments [place] [address] * (ABNORMAL) Urinalysis with microscopic (06/02/2025 1:55 PM EST) Color Urine Dark Yellow See or sandra comments Appearance Urine Cloudy See order comments pH Urine 5.5 5.0 - 9.0 See order comments Glucose Urine 100(A) Negative mg/dL See order comments Blood, Urine Negative Negative See ord er comments Specific Sebastian Urine 1.020 1.005 - 1.025 See order comments Protein Urine 300 (3+)(A) Neg-Trace mg/dL See order comments Ketones, Urine Trace Negative mg/dL See order comments Nitrite, Urine Negative Negative See o rder comments Leukocyte Esterase Urine Trace(A) Negative See order comments RBC, Urine 0-2 0 - 2 /HPF See orde r comments WBC 0-5 0 - 5 /HPF See order comments Squamous Epithelial, Urine 6-10 0 - 2 /HPF See order comments Bacteria, Urine None Seen None Seen See order comments Hyaline Casts, Urine 6-10 0 - 2 /LPF See order comments Granular Casts, Urine Present See order comments Urine specimen (specimen) Urine specimen obtained by clean catch procedure / Unknown 06/02/2025 1:55 PM EST 06/02/2025 1:55 PM EST Jimbo Graf MD LAB URINE ORDERABLES Final Result Performing Organization Address [facility] de Phone Number BAJADERO See order comments [place] [address] * (ABNORMAL) PTH, Intact (06/02/2025 1:29 PM EST) Parathyroid Hormone, Intact 81.2(H) 8.7 - 77.1 pg/mL See order comments 06/02/2025 1:29 PM EST 06/02/2025 1:29 PM EST Jimbo Graf MD LAB BLOOD ORDERABLES Final Result Performing Organization Address [facility] de Phone Number BAJADERO See order comments [place] [address] * Iron Panel (Fe, TIBC, TSAT) (06/02/2025 1:29 PM EST) Iron 80 45 - 160 mcg/dL See order comments TIBC 299 228 - 428 mcg/dL See order comments Iron Saturation (TSat) 27 15 - 50 % See order comments UIBC 219 ug/dL See order comments Blood specimen (specimen) Venous blood / Unknown 06/02/2025 1:29 PM EST 06/02/2025 1:29 PM EST Jimbo Graf MD LAB BLOOD ORDERABLES Final Result Performing Organization Address City/[facility] de Phone Number REED See order comments [place] [address] * (ABNORMAL) Vitamin D 25 Hydroxy (06/02/2025 1:29 PM EST) Vitamin D, 25-Hydroxy 22.1(L) >30 ng/mL See order comments Comment: Health Based Reference Values* < 20 ng/mL Deficient 20-30 ng/mL Insufficient > 30 ng/mL Sufficient *Yo PRADO. N Engl J Med. 2007;357:266-280 There is no well-established upper level of normal vitamin D levels. Some laboratories use 50 ng/mL as an upper limit of normal. However, toxicity is patient-dependent and may occur at any level. Careful correlation with the patient's presentation is necessary and, if there is concern for vitamin D toxicity, treatment should be considered irrespective of the serum level. Care must be taken in interpreting Vitamin D results from different laboratories and methodologies. Published data demonstrated that results from patients undergoing hemodialysis may show a negative bias when tested with various automated 25-OH vitamin D assays when compared to LC-MS/MS. When testing samples from patients whose predominant form of Vitamin D is Vitamin D2, such as patients receiving Vitamin D2 supplementation, results that are subtherapeutic should be confirmed with another method such as LC-MS/MS. Blood specimen (specimen) Venous blood / Unknown 06/02/2025 1:29 PM EST 06/02/2025 1:29 PM EST us Jimbo Graf MD LAB BLOOD ORDERABLES Final Result Performing Organization Address [facility]/ZIP Co de Phone Number REED See order comments [place] [address] * (ABNORMAL) CBC and Differential (06/02/2025 1:29 PM EST) WBC 7.5 4.8 - 10.8 X10*3/uL See order comments RBC 4.27(L) 4.60 - 5.80 X10*6/uL See order comments Hgb 12.3(L) 14.0 - 18.0 g/dl See order comments Hematocrit 37.2(L) 42.0 - 52.0 % See order comments MCV 87.1 80.0 - 98.0 fL See order comments MCH 28.8 27.0 - 33.0 pg See order comments MCHC 33.1 31.0 - 36.0 g/dl See order comments RDW 13.6 11.0 - 16.0 % See order comments Platelets 261 160 - 400 X10*3/uL See order comments MPV 9.8 9.4 - 12.4 fL See order comments Neutrophils % Auto 70.7 45 - 73 % See order comments Immature Granulocytes 0.4 0.0 - 0.4 % See order comments Lymphocytes Relative 20.0 20 - 40 % See order comments Monocytes 6.9 2 - 11 % See order comments Eosinophils Relative 1.6 0 - 4 % See order comments Basophils Relative 0.4 0 - 2 % See order comments nRBC Count 0.0 0.0 - 0.2 /100WBC See order comments Neutrophils Absolute 5.3 2.0 - 8.3 x10*3/uL See order comments Immature Grans (Absolute) 0.03 0.00 - 0.03 X10*3/uL See order comments Lymphocytes Absolute 1.5 1.2 - 4.9 X10*3/uL See order comments Monocytes Absolute 0.5 0.1 - 1.2 X10*3/uL See order comments Eosinophils Absolute 0.1 0.0 - 0.4 X10*3/uL See order comments Basophils Absolute 0.0 0.0 - 0.2 X10*3/uL See order comments NRBC Absolute 0.000 0.0 - 0.012 X10*3/uL See order comments Blood specimen (specimen) Venous blood / Unknown 06/02/2025 1:29 PM EST 06/02/2025 1:29 PM EST us Jimbo Graf MD LAB BLOOD ORDERABLES Final Result Performing Organization Address [facility] de Phone Number BAJADERO See order comments [place] [address] * (ABNORMAL) Uric Acid (06/02/2025 1:29 PM EST) Uric Acid 7.5(H) 3.4 - 7.0 mg/dL See order comments Blood specimen (specimen) Venous blood / Unknown 06/02/2025 1:29 PM EST 06/02/2025 1:29 PM EST us Jimbo Graf MD LAB BLOOD ORDERABLES Final Result Performing Organization Address [facility] Phone Number BAJADERO See order comments [place] [address] * Phosphorus (06/02/2025 1:29 PM EST) Phosphorus, Serum 3.3 2.7 - 4.5 mg/dL See order comments Blood specimen (specimen) Venous blood / Unknown 06/02/2025 1:29 PM EST 06/02/2025 1:29 PM EST us Jimbo Graf MD LAB BLOOD ORDERABLES Final Result Performing Organization Address [facility] Phone Number BAJADERO See order comments [place] [address] * (ABNORMAL) Magnesium (06/02/2025 1:29 PM EST) Magnesium 1.5(L) 1.6 - 2.6 mg/dL See order comments Blood specimen (specimen) Venous blood / Unknown 06/02/2025 1:29 PM EST 06/02/2025 1:29 PM EST us Jimbo Graf MD LAB BLOOD ORDERABLES Final Result Performing Organization Address City/[facility] de Phone Number BAJADERO See order comments [place] [address] * (ABNORMAL) Hemoglobin A1c (06/02/2025 1:29 PM EST) Hemoglobin A1C 6.1(H) <6.0 % See o rder comments Comment: Hemoglobin A1C Reference Range Adults: 4.8 - 6.0 % Non diabetic: < 6.0 % Goal: < 7.0 % Additional Action Suggested: > 8.0 % Note: Hemoglobin A1c results are invalid for patients with abnormal amounts of HbF. Blood transfusions may impact the HbA1c concentration in the patient sample. Estimated Average Glucose 128 mg/dL See order comments Comment: eAG = Estimated average glucose which is %A1C expressed as average glucose, using the formula of the P4E-[place] Average Glucose study (ADAG), Diabetes Care, Vol.31,#8, 2007 Blood specimen (specimen) Venous blood / Unknown 06/02/2025 1:29 PM EST 06/02/2025 1:29 PM EST Jimbo Graf MD LAB BLOOD ORDERABLES Final Result Performing Organization Address [facility] de Phone Number BAJADERO See order comments [place] [address] * Ferritin (06/02/2025 1:29 PM EST) [facility] Ferritin 170 20 - 250 ng/mL See order comments Blood specimen (specimen) Venous blood / Unknown 06/02/2025 1:29 PM EST 06/02/2025 1:29 PM EST Jimbo Graf MD LAB BLOOD ORDERABLES Final Result Performing Organization Address [facility] de Phone Number BAJADERO See order comments [place] [address] * (ABNORMAL) Basic Metabolic Panel (06/02/2025 1:29 PM EST) Pathologist [facility] Sodium 143 135 - 145 mmol/L See order comments Potassium 4.3 3.3 - 5.1 mmol/L See order comments Chloride 110(H) 96 - 108 mmol/L See order comments Bicarbonate (CO2) 23 22 - 29 mmol/L See order comments Anion Gap 14 12 - 20 See order comments BUN 21(H) 9 - 16 mg/dL See order comments Creatinine Serum 1.34 0.5 - 1.4 mg/dL See order comments eGFR (Calc) 53 See orde r comments Comment: Chronic Kidney Disease: Estimated GFR < 60 mL/min/1.73m2 Severe Kidney Disease: Estimated GFR < 15 mL/min/1.73m2 Glucose 139(H) 60 - 115 mg/dL See order comments Calcium 9.3 8.4 - 10.2 mg/dL See order comments Blood specimen (specimen) Venous blood / Unknown 06/02/2025 1:29 PM EST 06/02/2025 1:29 PM EST Jimbo Graf MD LAB BLOOD ORDERABLES Final Result BAJADERO See order comments [place] [address] from Last 3 Months Insurance ([id number]) RAHEEM DOUGLASS [phone] [facility] ([id number]) RAHEEM DOUGLASS [phone] Care Teams Studio Producer Relationship Specialty Start Date End Date Therese Ramos MD [address] [place] [address] PCP - General Internal Medicine 06/06/22
== END 2025-06-22 14:09 | disposition home or self-care (01) ==
LOC: HO.LAB 14:08
PROVIDERS: PCP Internal Medicine; Visit Provider Internal Medicine
DX: E78.00 Pure hypercholesterolemia, unspecified (principal); I12.9 Hypertensive chronic kidney disease with stage 1 through stage 4 chronic kidney disease, or unspecified chronic kidney disease; N18.9 Chronic kidney disease, unspecified; R74.01 Elevation of levels of liver transaminase levels
CPT/HCPCS: 36415; 80053